=== PATIENT | female | born 1955 | race Caucasian/White ===

== ENCOUNTER 2020-02-08 00:06 | Day surgery (SDC) | payer OTHER, SELFPAY ==
[2020-02-05 11:19] VITALS: BMI 27.3
[2020-02-08 06:37] VITALS: BP 145/77; PULSE 83; RESP 18; TEMP 36.3; O2SAT 97
[2020-02-08] MEDS: LACTATED RINGERS 1,000 ML 150 ML IV CONT (06:44)
--- NOTE | 2020-02-08 07:14 | WPDANESEPPF ---
Anes - Initial Pre Proc Eval Procedure: Operation Date: 02/08/20 08:00 Proposed Procedures p Colonoscopy - Drake Durant DO Date/Time: 02/08/20 07:14 Surgeon: Drake Durant DO Pre Op Diagnosis: Constipation Patient Data Age: 64 Gender: F Height: 5 ft 2 in Weight: 68.2 kg Last Vital Signs Temp 36.3 C L 02/08/20 06:37 Pulse 83 02/08/20 06:37 Resp 18 02/08/20 06:37 BP 145/77 H 02/08/20 06:37 Pulse Ox 97 02/08/20 06:37 Allergies Allergy/AdvReac Type Severity Reaction Status Date / Time Sulfa (Sulfonamide Allergy Unknown Unknown Verified 02/05/20 11:27 Antibiotics) Home Medications Medication Instructions Recorded Confirmed Type alprazolam 0.25 mg tablet 0.25 mg PO TID PRN 10/06/19 02/05/20 History duloxetine 30 mg capsule,delayed 30 mg PO DAILY 10/06/19 02/05/20 History release dexlansoprazole [Dexilant] 60 mg PO DAILY 02/05/20 02/05/20 History metformin 500 mg PO DAILY 02/05/20 02/05/20 History Patient hx anesthesia problems: none Family hx anesthesia problems: none PMFSH Past Medical History Medical History Sims's esophagus with dysplasia FH: dementia Gastroesophageal reflux disease Major depressive disorder in partial remission Mixed hyperlipidemia Family History Family History Father Family history of Alzheimer's disease Family history of dementia Family history of coronary artery disease Family history of malignant neoplasm of kidney Mother Family history of dementia Grandparent Family history of malignant neoplasm of gastrointestinal tract Other Cerebrovascular accident Family history of cardiovascular disease Social History Social History Smoking status: Never smoker Alcohol intake: current Anes - Eval Final PreProcedure Day of Procedure 02/08/20 07:14 Patient weight: overweight Heart: regular rate and rhythm Lungs: clear to auscultation Airway: Mallampati scale class II Neurological: alert and oriented Last oral intake: >/= 8 hours ASA classification: I Emergent: no Anesthetic plan: proceed Anesthesia type and monitoring: general GIVS and standard monitoring Informed Consent: The patient's anesthetic plan and its attendant risks and benefits were discussed with the patient/family/POA. Questions were solicited and answers provided to the satisfaction of the patient/family/POA.
--- NOTE | 2020-02-08 08:02 | PM.IMHP ---
H&P: HPI History of Present Illness Chief complaint: Constipation Narrative: Batsheva Belcher is a 64 year old female This being evaluated for change in bowel habits. She has notice increasing constipation and change in caliber of the stools. She denies any hematochezia, melena or acholic stools. She does have significant abdominal discomfort with the constipation. Previous colonoscopy was unremarkable. The patient is here for follow-up colonoscopy due to change in bowel habits. She has has intentional weight loss. She does have history of reflux disease and status post Hector fundoplication. She has a history of underlying Sims's esophagus status post ablation. Impression: Change in bowel habits with increasing constipation. This may be secondary to underlying irritable bowel syndrome with constipation and chronic idiopathic constipation. Underlying inflammatory or neoplastic disease should be excluded. GERD with history of Sims's esophagus with dysplasia. Status post Hector fundoplication and ablation. For past medical history. Recommendation: Colonoscopy. Fiber and probiotic. Will give a trial of Linzess pending colonoscopy report. General: very pleasant patient in no acute distress. HEENT: Head was normocephalic sclerae is clear mouth without masses neck was supple. Heart: Rate rhythm regular without S3 or S4. Lungs: CTA. Abdomen: Soft with no guarding or rigidity. Bowel sounds were active. Neurologic: Cranial nerves 2 through 12 intact. No focal defects. No clonus. Musculoskeletal system: Revealed no joint tenderness or swelling no muscle atrophy. Extremities: Reveal no significant edema. Skin: Warm and dry with normal turgor. Mental status: intact. Patient is alert and oriented. Review of Systems Review of Systems: All systems reviewed & are unremarkable except as noted in HPI and below [facility] Past Medical History Medical History Sims's esophagus with dysplasia FH: dementia Gastroesophageal reflux disease Major depressive disorder in partial remission Mixed hyperlipidemia Surgical History Surgical History (Updated 02/08/20 @ 08:04 by Drake Durant DO) History of Hector fundoplication Family History Family History Father Family history of Alzheimer's disease Family history of dementia Family history of coronary artery disease Family history of malignant neoplasm of kidney Mother Family history of dementia Grandparent Family history of malignant neoplasm of gastrointestinal tract Other Cerebrovascular accident Family history of cardiovascular disease Social History Social History Smoking status: Never smoker Alcohol intake: current Meds Home Medications and Allergies Home Medications Medication Instructions Recorded Confirmed Type alprazolam 0.25 mg tablet 0.25 mg PO TID PRN 10/06/19 02/05/20 History duloxetine 30 mg capsule,delayed 30 mg PO DAILY 10/06/19 02/05/20 History release dexlansoprazole [Dexilant] 60 mg PO DAILY 02/05/20 02/05/20 History metformin 500 mg PO DAILY 02/05/20 02/05/20 History Allergies Allergy/AdvReac Type Severity Reaction Status Date / Time Sulfa (Sulfonamide Allergy Unknown Unknown Verified 02/05/20 11:27 Antibiotics) Vital Signs Vital Signs - 24 hr 02/08/20 06:37 Temperature 36.3 C L Pulse Rate 83 Respiratory Rate 18 Blood Pressure 145/77 H Pulse Oximetry 97
[2020-02-08 08:38] VITALS: BP 86/55; PULSE 60; RESP 19; O2SAT 97
[2020-02-08 08:48] VITALS: BP 106/63; PULSE 63; RESP 19; O2SAT 100
[2020-02-08 08:58] VITALS: BP 95/61; PULSE 60; RESP 17; O2SAT 100
== END 2020-02-08 09:08 | disposition home or self-care (01) ==
PROVIDERS: PCP Family Medicine; Visit Provider Internal Medicine Gastroenterology
PROC: 0DJD8ZZ Inspection of Lower Intestinal Tract, Via Natural or Artificial Opening Endoscopic (ICD-10-PCS; CPT 45378; principal; 2020-02-08 08:00)
DX: K59.00 Constipation, unspecified (principal); K57.30 Diverticulosis of large intestine without perforation or abscess without bleeding; E78.2 Mixed hyperlipidemia; K21.9 Gastro-esophageal reflux disease without esophagitis; F32.9 Major depressive disorder, single episode, unspecified
CPT/HCPCS: 45378; J2704; J7120

== ENCOUNTER 2020-08-13 13:15 | Outpatient (RCR) | payer MEDICARE, SELFPAY ==
--- NOTE | 2020-07-31 15:49 | PTOPEVAL ---
PHYSICAL THERAPY EVALUATION AND PLAN OF CARE Thank you for referring Batsheva Belcher to [facility] The patient is scheduled to be seen for therapy? 1x/week for 4-8 weeks. Please review, sign, date and return this plan of care ALLEGRA. I agree with and certify that the following plan of care is medically necessary. Referring Physician Date Attending Provider: Jeovany Chapman MD Evaluation Diagnosis left impingement syndrome Onset 1 year Subjective Information reports pain in left shoulder Query Text:As Reported By Patient/ with reaching behind back. 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 She received an injection to the shoulder. The injection has improved her ability to sleep. Self Report Pain Assessment Left Shoulder(s) Reported Pain Level 2 Pain Description Aching,Dull Pain Frequency Chronic,Intermittent Lowest Pain Intensity 0 Greatest Pain Intensity 6 Interventions Used Interventions Used By Clinicians Exercise,Manual Therapy Techniques Other Alleviating Interventions change position Upper Extremity Range of Motion Scapular/ Shoulder Range of Motion Right Shoulder Flexion - Active 160 Shoulder Abduction - Active 160 Shoulder Medial Rotation - Active T8 Query Text:Reach Behind the Back Shoulder Lateral Rotation - Active 75 Query Text:Reach Behind the Head Left Shoulder Flexion - Active 136 Shoulder Abduction - Active 152 Shoulder Medial Rotation - Active L1 Query Text:Reach Behind the Back Shoulder Lateral Rotation - Active 72 Query Text:Reach Behind the Head Upper Extremity Muscle Strength Testing Scapular/Shoulder Right Shoulder Flexion Strength 5 Normal Shoulder Abduction Strength 5 Normal Shoulder Medial Rotation Strength 5 Normal Shoulder Lateral Rotation Strength 5 Normal Left Shoulder Flexion Strength 5 Normal Shoulder Abduction Strength 5 Normal Shoulder Medial Rotation Strength 4+ Good + Shoulder Lateral Rotation Strength 5 Normal Muscle Length Testing Muscle Length Testing Upper Trapezius Muscle Length (L) Moderate Tightness Supraspinatus Muscle Length (L) Moderate Tightness Pectoralis Major Muscle Length (L) Moderate Tightness Palpation Assessment Palpation Palpation tight and tender noted to left infraspinatus, supraspinatus, upper trapezius, pectoralis major, and subscapularis Special Tests-Upper Extremity Shoulder Special Tests Empty Can (supr
--- NOTE | 2020-08-19 11:56 | PCPTNOTE ---
Patient called & cancelled scheduled appointment this date due to being ill.
--- NOTE | 2020-08-27 12:31 | PCPTNOTE ---
Patient called & cancelled scheduled appointment this date due to meeting at work.
--- NOTE | 2020-09-18 08:28 | PCPTNOTE ---
PHYSICAL THERAPY DISCHARGE NOTE Attending Provider: Jeovany Chapman MD Patient:Batsheva Belcher Date of :1955 Patient has not returned for any further treatments since 08/13/2020, therefore she will be discharged at this time. Patient?s initial visit was on 07/31/2020 and had a total of 3 visits. Thank you for referring this patient to [facility]. Please review, sign, date and return this discharge summary ALLEGRA. I have been updated about the patient's current status and I agree with discharge from the above service at this time. Referring Physician Date
== END 2020-09-18 11:28 | disposition home or self-care (01) ==
LOC: ANHPT 13:15
PROVIDERS: PCP Family Medicine; Visit Provider Orthopaedic Surgery
DX: M75.42 Impingement syndrome of left shoulder (principal)
CPT/HCPCS: 97110; 97140; 97161

== ENCOUNTER 2020-08-22 09:52 | Outpatient (CLI) | payer MEDICARE, SELFPAY ==
--- NOTE | ~2020-08-22 | MM_ITS ---
EXAMINATION: MM screening [facility] BI w jose luis HISTORY: Screening mammogram TECHNIQUE: Craniocaudal and mediolateral oblique 3-D tomosynthesis images were obtained and synthetic 2-D images were generated. CAD analysis was submitted and interpreted. COMPARISON: 06/09/2019, 09/08/2018, 05/23/2018, 05/22/2013 BREAST PARENCHYMAL COMPOSITION: The breasts are heterogeneously dense, which may obscure small masses . FINDINGS: Scattered benign-appearing calcifications are present. There is no evidence of suspicious m ass, calcification, or architectural distortion to suggest malignancy in either breast. There has bee n no suspicious interval change. IMPRESSION: 1. No mammographic evidence of malignancy. 2. Recommend routine screening mammography in one year. BI-RADS Category 2: Benign finding(s). Reviewed, dictated and finalized at location A. F MATE
== END 2020-08-22 09:53 | disposition home or self-care (01) ==
LOC: ANHIMG 09:58
PROVIDERS: PCP Family Medicine; Visit Provider Family Medicine
DX: Z12.31 Encounter for screening mammogram for malignant neoplasm of breast (principal)
CPT/HCPCS: 77063; 77067

== ENCOUNTER → 2022-06-04 09:42 | Outpatient (CLI) | payer MEDICARE, BC, SELFPAY ==
--- NOTE | ~2022-06-04 | DEXA_ITS ---
Bone Density Report Name: ENRIQUE HAYTT Age: 67 Sex: Female Ethnicity: White Date of : 1955 Indication: postmenopausal; screening for osteoporosis; hysterectomy; Referring Provider: SAULO SOLORIO Study: Bone densitometry was performed. Exam Date: June 04, 2022 Accession number: [id number] Bone Density: Region BMD T-score Z-score Classification AP Spine (L1-L4) 1.086 0.4 2.3 Normal Femoral Neck (Left) 0.812 -0.3 1.3 Normal Total Hip (Left) 0.972 0.2 1.6 Normal Femoral Neck (Right) 0.828 -0.2 1.4 Normal Total Hip (Right) 0.975 0.3 1.6 Normal Total Hip Mean 0.974 0.3 1.6 Normal World Health Organization criteria for BMD impression classify patients as: Normal (T-score at or above -1.0), Osteopenia (T-score between -1.0 and -2.5), or Osteoporosis (T-score at or below -2.5). 10-year Fracture Risk: FRAX not reported because: All T-scores for Spine Total, Hip Total, Femoral Neck at or above -1.0 Previous Exams: Region Exam Age BMD T-score BMD Change BMD Change Date g/cm2 vs Baseline vs Previous AP Spine(L1-L4) 06/04/2022 67 1.086 0.4 0.051* 0.051* 03/20/2016 60 1.036 -0.1 Total Hip(Left) 06/04/2022 67 0.972 0.2 0.015 0.015 03/20/2016 60 0.957 0.1 Total Hip(Right) 06/04/2022 67 0.975 0.3 0.036* 0.036* 03/20/2016 60 0.938 0.0 *Denotes significance at 95% confidence level, LSC for AP Spine = 0.022 g/cm2, LSC for Total Hip = 0.027 g/cm2 Clinical Information Provided by Patient: Has the following medical conditions: Hysterectomy Patient maximum height was 63 Menopause Age: 47 No regular weight bearing exercise Drinks caffeinated beverages Onset of menses at age 14 Number of children 3 Impression: The patient has normal bone mass. No significant bone loss was observed. Discussion: BONE DENSITY IS ABOVE THE MINIMUM DESIRABLE LEVEL AT ALL SKELETAL SITES TESTED. This patient?s bone mineral density is above the minimum desirable level (T-score -1.0 or better) at all sites measured. The patient should follow a healthful lifestyle (good nutrition with adequate calcium and vitamin D, and appropriate weight-bearing exercise). Follow-Up: Consider repeating this study in 5 years or sooner if there is some new clinical indication. Reported by: [facility] on 06/04/2022 10:49:00 AM. Reviewed, dictated and finalized at l
--- NOTE | ~2022-06-04 | MM_ITS ---
EXAMINATION: MM screening [facility] BI w jose luis HISTORY: Screening mammogram TECHNIQUE: Craniocaudal and mediolateral oblique 3-D tomosynthesis images were obtained and synthetic 2-D images were generated. CAD analysis was submitted and interpreted. COMPARISON: 08/22/2020, 06/09/2019, 09/08/2018, 05/23/2018 BREAST PARENCHYMAL COMPOSITION: The breasts are heterogeneously dense, which may obscure small masses . FINDINGS: Scattered benign-appearing calcifications are present. There is no suspicious mass, calcifi cation, or architectural distortion to suggest malignancy in either breast. There has been no suspici ous interval change. IMPRESSION: 1. No mammographic evidence of malignancy. 2. Recommend routine screening mammography in one year. BI-RADS Category 2: Benign finding(s). Reviewed, dictated and finalized at location A.
== END ==
PROVIDERS: PCP Family Medicine; Visit Provider Family Medicine
DX: Z12.31 Encounter for screening mammogram for malignant neoplasm of breast (principal); Z78.0 Asymptomatic menopausal state
CPT/HCPCS: 77063; 77067; 77080

== ENCOUNTER 2022-06-27 09:40 | Emergency (ER) | payer MEDICARE, SELFPAY ==
[2022-06-27] VITALS (13 sets, daily range): BP systolic 126–153; BP diastolic 60–80; PULSE 71–85; RESP 11–18; TEMP 36.6; O2SAT 94–100
--- NOTE | ~2022-06-27 | XR_ITS ---
EXAMINATION: XR chest 1V portable 06/27/2022 10:26 INDICATION: Cough and shortness of breath PROCEDURE: AP portable chest COMPARISON: No prior studies for comparison. FINDINGS: The lungs are clear. The cardiomediastinal silhouette is within normal limits. There are no pleural effusions. There is no pneumothorax suspected. IMPRESSION: 1: NO ACUTE CARDIOPULMONARY DISEASE. Reviewed, dictated and finalized at location A.
--- NOTE | 2022-06-27 09:55 | ECG_ITS ---
Measurements Intervals [place] Rate: 77 P: 58 VT: 154 QRS: -10 QRSD: 80 T: 42 QT: 370 QTc: 420 Interpretive Statements SINUS RHYTHM NORMAL ECG NO PREVIOUS ECG AVAILABLE FOR COMPARISON Electronically Signed On 06-27-2022 11:15:06 CDT by Jonathan Pozo D.O.
[2022-06-27] MEDS: IPRATROPIUM BR 0.02% INH SOLN 0.5 MG/2.5 ML VIAL 1.5 MG INHALATION (10:10)
[2022-06-27] MEDS: ALBUTEROL SULFATE NEB 2.5 MG/3 ML INH 15 MG INHALATION (10:10)
[2022-06-27 10:24] LABS: Basophils Percent Auto 0.8 % (0.2-1.2); Eosinophils Absolute Auto 0.4 K/mm3 (0-0.3); Eosinophils Percent Auto 8.3 % (0-4.4); Hematocrit 40.3 % (37.0-47.0); Immature Granulocyte Absolute 0.01 K/mm3 (0.00-0.031); Immature Granulocyte Percent A 0.2 % (0-0.5); Lymphocytes Absolute Auto 0.87 K/mm3 (0.9-3.2); Lymphocytes Percent Auto 16.4 % (18.3-44.2); Mean Corpuscular HGB Conc 34.7 g/dl (32-36); Mean Corpuscular Hemoglobin 34.7 pg (26-34); Mean Corpuscular Volume 99.8 fl (80-100); Mean Platelet Volume 8.7 fl (7.4-10.4); Monocytes Absolute Auto 0.5 K/mm3 (0.1-0.6); Monocytes Percent Auto 9.6 % (2.6-8.5); Neutrophils Absolute Auto 3.4 K/mm3 (1.3-6.7); Neutrophils Percent Auto 64.7 % (45.5-73.1); Platelet Count Result 333 k/mm3 (150-375); Red Blood Count 4.04 M/mm3 (4.2-5.4); Red Cell Distribution Width 11.6 % (11.5-14.5); White Blood Count 5.3 K/mm3 (4.5-10.0)
[2022-06-27 10:40] LABS: Anion Gap 12 mmol/L (8-16); Blood Urea Nitrogen 14 mg/dL (7-17); Calcium 8.6 mg/dL (8.4-10.2); Carbon Dioxide 24 mmol/L (22-30); Chloride 104 mmol/L (98-107); Estimated CRCL calculation 56 ml/min; Estimated Glomerular Filt Rate > 60; Glucose 113 mg/dL (65-110); Potassium 3.8 mmol/L (3.4-5.0); Sodium 140 mmol/L (137-145)
[2022-06-27 10:49] LABS: SARS-CoV-2 RNA PCR Negative
--- NOTE | 2022-06-27 11:40 | PC.NURSE ---
pt states that she still feels tightness in her chest at this time
[2022-06-27] MEDS: IPRATROPIUM BR 0.02% INH SOLN 0.5 MG/2.5 ML VIAL INHALATION (12:00)
[2022-06-27] MEDS: ALBUTEROL SULFATE NEB 2.5 MG/3 ML INH 5 MG INHALATION (12:00)
--- NOTE | 2022-06-27 12:21 | ED.GENADULT ---
HPI - General Adult General Chief complaint: Upper Respiratory Infection Stated complaint: URI - cough x 3 weeks Time Seen by Provider: 06/27/22 09:43 History of Present Illness HPI narrative: Patient is a 67-year-old female who presents ER with cough and shortness of breath. Patient reports she had a viral illness in late May that she thought she got over but over the last 3 days symptoms have increased. She has frequent coughing. She has been hearing wheezing at night. She feels tightness in her chest. No exertional chest pain. No history of [place]. No lung disease. She took a COVID antigen test that was negative. Related Data Home Medications Medication Instructions Recorded Confirmed linaclotide 72 mcg capsule 72 mcg PO DAILY 08/02/20 10/01/21 (Linzess) Allergies Allergy/AdvReac Type Severity Reaction Status Date / Time Sulfa (Sulfonamide Allergy Unknown Unknown Verified 06/27/22 09:41 Antibiotics) Review of Systems Review of Systems: All systems reviewed & are unremarkable except as noted in HPI and below Constitutional: Constitutional: Denies chills and Denies fever(s) Cardiovascular: Cardiovascular: Denies chest pain, Denies rapid heart rate and Denies radiating jaw, neck or arm pain Respiratory: Respiratory: Reports cough, Reports dyspnea and Reports wheezing Gastrointestinal: Gastrointestinal: Denies abdominal pain, Denies nausea and Denies vomiting PMFSH Past Medical History Medical History Sims's esophagus with dysplasia BMI 26.0-26.9,adult FH: dementia Gastroesophageal reflux disease Left lateral epicondylitis Major depressive disorder in partial remission Mixed hyperlipidemia Surgical History Surgical History H/O: hysterectomy History of cholecystectomy History of Hector fundoplication Family History Family History Father Family history of Alzheimer's disease Family history of dementia Family history of coronary artery disease Family history of malignant neoplasm of kidney Mother Family history of dementia Grandparent Family history of malignant neoplasm of gastrointestinal tract Other Cerebrovascular accident Family history of cardiovascular disease Social History Social History Smoking status: Never smoker Alcohol intake: current Drinks per week: 4 Substance use: never Substance use type: does not use Gender identity (if verbalized by the patient): Female Exam Narrative: GENERAL: Well-appearing, well-nourished, and in no acute distress. HEAD: Normocephalic, atraumatic. ENT: Mucous membranes moist. Normal-appearing posterior oropharynx. Uvula midline nonedematous. No tonsillar hypertrophy. NECK: Supple. CHEST: Scattered rhonchi and wheezing. No respiratory distress. HEART: Regular rate and rhythm. Normal peripheral pulses. EXTREMITIES: Normal range of motion. No edema. SKIN: Warm, dry, no rash. NEURO: Alert and oriented x3. PSYCH: Normal mood and affect. Course Vital Signs Vital signs: Vital Signs Temperature 97.9 F 06/27/22 09:43 Pulse Rate 85 06/27/22 09:43 Respiratory Rate 16 06/27/22 09:43 Blood Pressure 126/78 06/27/22 09:43 Pulse Oximetry 99 06/27/22 09:43 Oxygen Delivery Room Air 06/27/22 09:43 Temperature 97.9 F 06/27/22 09:43 Pulse Rate 71 06/27/22 12:06 Respiratory Rate 14 06/27/22 12:06 Blood Pressure 134/60 06/27/22 11:16 Pulse Oximetry 94 06/27/22 11:16 Oxygen Delivery Room Air 06/27/22 10:03 Medical Decision Making [facility] Narrative Medical decision making narrative: Patient markedly improved after nebulizer treatment. Will give first dose steroids here and discharged home. Vital Signs Vital Signs: Vital Signs Temperature 97.9 F
[2022-06-27] MEDS: predniSONE 40 MG, predniSONE 10 MG 50 MG PO (12:33)
== END 2022-06-27 12:45 | disposition home or self-care (01) ==
PROVIDERS: Emergency Provider Emergency Medicine; PCP Family Medicine
DX: J40 Bronchitis, not specified as acute or chronic (principal); Z90.710 Acquired absence of both cervix and uterus; K22.70 Barrett's esophagus without dysplasia; K21.9 Gastro-esophageal reflux disease without esophagitis; E78.2 Mixed hyperlipidemia; Z20.822 Contact with and (suspected) exposure to COVID-19
CPT/HCPCS: 36415; 71045; 80048; 85025; 93005; 94640; 99284; C9803; J7512; U0003; U0005

== ENCOUNTER → 2023-11-16 15:55 | Outpatient (CLI) | payer MEDICARE, SELFPAY ==
--- NOTE | ~2023-11-16 | MM_ITS ---
EXAMINATION: MM screening [facility] BI w jose luis HISTORY: Screening mammogram TECHNIQUE: Craniocaudal and mediolateral oblique 3-D tomosynthesis images were obtained and synthetic 2-D images were generated. CAD analysis was submitted and interpreted. COMPARISON: 06/04/2022, 08/22/2020, 06/09/2019 BREAST PARENCHYMAL COMPOSITION: The breasts are heterogeneously dense, which may obscure small masses . FINDINGS: Scattered benign-appearing calcifications are present. No suspicious mass, calcification, o r architectural distortion are identified in either breast to suggest malignancy. There has been no s uspicious interval change. IMPRESSION: 1. No mammographic evidence of malignancy. 2. Recommend routine screening mammography in one year. BI-RADS Category 2: Benign finding(s). Reviewed, dictated and finalized at location A. RESSED [employer] TE[employer]
== END ==
PROVIDERS: PCP Surgery; Visit Provider Family Medicine
DX: Z12.31 Encounter for screening mammogram for malignant neoplasm of breast (principal)
CPT/HCPCS: 77063; 77067

== ENCOUNTER 2024-05-04 13:43 | Outpatient (CLI) | payer MEDICARE, SELFPAY ==
[2024-05-04 14:31] LABS: Influenza A QL RT-PCR Negative (Negative); Influenza B QL RT-PCR Negative (Negative); RSV RNA, RT-PCR Negative (Negative); SARS-CoV-2 RNA PCR Negative (Negative)
== END 2024-05-04 13:44 | disposition home or self-care (01) ==
LOC: ANHLAB 13:45
PROVIDERS: PCP Family Medicine; Visit Provider Family Medicine
DX: J06.9 Acute upper respiratory infection, unspecified (principal); Z20.822 Contact with and (suspected) exposure to COVID-19
CPT/HCPCS: 87637

== ENCOUNTER 2024-12-19 08:55 | Emergency (ER) | payer MEDICARE, SELFPAY ==
--- NOTE | ~2024-12-19 | CT_ITS ---
CT scan of the Neck Technique: 2.5 mm axial scans were obtained through the neck after intravenous administration of 75 c c Omnipaque 350. Coronal and sagittal reconstructions of the neck were obtained. Dose reduction techn ique was used on this scan by utilizing automated exposure control and iterative reconstruction techn ique. The dose-length product (DLP) was 475.91 mGy-cm. Clinical History: Right-sided neck pain Findings: There is no evidence of any significant cervical lymphadenopathy. Several small, nonenlarged jugulo- digastric and posterior cervical lymph nodes are noted bilaterally. Parapharyngeal spaces appear norm al bilaterally. The parotid and submandibular glands appear normal. The pharyngeal mucosal spaces appear normal. No soft tissue masses are seen in the neck. The thyroid gland appears normal. Images of the lung apices reveal no abnormalities. Impression: No significant abnormalities noted. Reviewed, dictated and finalized at [facility]. Impression: No significant abnormalities noted.
[2024-12-19 08:55] VITALS: BP 185/72; PULSE 62; RESP 16; TEMP 36.3; O2SAT 97
--- NOTE | 2024-12-19 09:23 | ED.GENADULT ---
HPI - General Adult General Chief complaint: Unspecified Stated complaint: R sided neck swelling since late nov Time Seen by Provider: 12/19/24 09:08 Source: patient Mode of arrival: ambulatory Limitations: no limitations History of Present Illness HPI narrative: This is a 69-year-old female who presents to the ED for chief complaint of right-sided neck swelling and pain x1 month. Patient states that she had COVID just over 1 month ago and she did notice the swelling start around that time. Patient states that she has had radiating pains from the lower jaw/teeth that radiates throughout the right side of the face and towards the right ear. Patient also states that it feels like her sinuses are congested and she feels congested throughout her whole head. Pain comes and goes in severity with no specific pattern. Patient had no relief with leftover Norcos. She has also had course of Z-Ángel and steroid pack previously. States that the last time she had intense pain like this was several years ago when she had to have root canal. Denies fevers, chills, difficulty swelling, trismus, drooling, muffled voice. Related Data Home Medications ?Medication ?Instructions ?Recorded ?Confirmed ?Last Taken ?Type meloxicam 15 mg tablet See Rx Instructions .Route 12/06/23 11/23/24 Unknown History .COMPLEX PRN Allergies Allergy/AdvReac Type Severity Reaction Status Date / Time Sulfa (Sulfonamide Allergy Unknown Unknown Verified 12/19/24 08:57 Antibiotics) Review of Systems Review of Systems: All systems as dictated in [facility] Past Medical History Medical History COVID (~11/19/24) Left lateral epicondylitis BMI 26.0-26.9,adult Sims's esophagus with dysplasia FH: dementia Gastroesophageal reflux disease Major depressive disorder in partial remission Mixed hyperlipidemia Surgical History Surgical History H/O: hysterectomy History of cholecystectomy History of Hector fundoplication Family History Family History Father Family history of Alzheimer's disease Family history of dementia Family history of coronary artery disease Family history of malignant neoplasm of kidney Mother Family history of dementia Grandparent Family history of malignant neoplasm of gastrointestinal tract Other Cerebrovascular accident Family history of cardiovascular disease Social History Social History Social History: Caffeine- coffee Smoking status: Never smoker Alcohol intake: current Drinks per week: 3 Substance use: never Substance use type: does not use Lack of Transportation: No Lack of Food: Never True Current Housing: I Have Housing Concerned About Future Housing: No Difficulty Paying Gas/Electric Bills: No Difficulty Paying for Meds: No Currently Unemployed: No Education: Master's Degree or Higher Difficulty w/ Childcare or Family Care: No Living arrangements: with family Occupation/Education: retired Gender identity (if verbalized by the patient): Female Exam Narrative: GENERAL: Well-appearing, well-nourished, and in no acute distress. HEAD: Normocephalic, atraumatic. EYES: PERRLA and EOMI. ENT: Minimal to no swelling noted throughout the bilateral neck. There is also minimal tenderness to the right submandibular region which is the area of concern. There is evidence of dental caries to the right lower molars. No discrete focal abscess. No fluctuance or induration. Nares clear, no rhinorrhea or epistaxis. Mucous membranes moist. Oropharynx without tonsillar hypertrophy exudate or other lesions. NECK: Supple. No adenopathy or masses. CHEST: No respiratory distress. Clear to auscultation. No wheezes rales or rhonchi HEART: Regular rate and rhythm. No murmur heard. Normal peripheral pulses. ABDOMEN: Soft, nontender, nondistended, normal active bowel sounds. MSK: Normal range of motion. No edema. SKIN: Warm, dry, no rash. NEURO: Alert and oriented x4. No focal deficits. PSYCH: Normal mood and affect. Course Vital Signs Vital signs: Vital Signs Temperature 97.3 F L 12/19/24 08:55 Pulse Rate 62 12/19/24 08:55 Respiratory Rate 16 12/19/24 08:55 Blood Pressure 185/72 H 12/19/24 08:55 Pulse Oximetry 97 12/19/24 08:55 Oxygen Delivery Room Air 12/19/24 08:55 Temperature 97.3 F L 12/19/24 08:55 Pulse Rate 61 12/19/24 12:00 Respiratory Rate 16 12/19/24 12:00 Blood Pressure 160/67 H 12/19/24 12:00 Pulse Oximetry 96 12/19/24 12:00 Oxygen Delivery Room Air 12/19/24 08:55 Medical Decision Making [facility] Narrative Medical decision making narrative: This is a 69-year-old female who presents to the ED for chief complaint of right-sided jaw pain and swelling over the past month. Vitals show elevated blood pressure but otherwise are normal. Exam is benign overall. No significant soft tissue swelling noted to exam. No induration or fluctuance to indicate abscess on ENT exam. There are dental caries present. Lab work shows normal white count on CBC. CMP unremarkable overall. CRP is negative. CT soft tissue neck with contrast: Impression: No significant abnormalities noted. Etiology unclear of the right submandibular pain, however I feel it is most likely odontogenic in nature. Patient was given cefazolin, dexamethasone, Toradol, Dilaudid here in the ED. There is sinusitis detected on the CT scan which is consistent with her sinus pressure symptoms. Encouraged her to follow-up with ENT on this as well as dentist for possible dental infection. Rx for Augmentin given. Rx for short course of [place] given for acute pain control. Patient will be discharged in stable condition. Supportive measures discussed and return precautions given. Patient is understanding and agreeable with plan for discharge with PCP follow-up. Vital Signs Vital Signs: Vital Signs Temperature 97.3 F L 12/19/24 08:55 Pulse Rate 62 12/19/24 08:55 Respiratory Rate 16 12/19/24 08:55 Blood Pressure 185/72 H 12/19/24 08:55 Pulse Oximetry 97 12/19/24 08:55 Oxygen Delivery Room Air 12/19/24 08:55 Temperature 97.3 F L 12/19/24 08:55 Pulse Rate 61 12/19/24 12:00 Respiratory Rate 16 12/19/24 12:00 Blood Pressure 160/67 H 12/19/24 12:00 Pulse Oximetry 96 12/19/24 12:00 Oxygen Delivery Room Air 12/19/24 08:55 Lab Data 12/19/24 10:16 12/19/24 10:16 Labs: Lab Results 12/19/24 Range/Units 10:16 WBC 5.6 (4.5-10.0) K/mm3 RBC 4.30 (4.2-5.4) M/mm3 Hgb 14.4 (12.0-15.0) g/dL Hct 42.6 (37.0-47.0) % MCV 99.1 (80-100) fl MCH 33.5 (26-34) pg MCHC 33.8 (32-36) g/dl RDW 12.5 (11.5-14.5) % Plt Count 279 (150-375) k/mm3 MPV 9.3 (7.4-10.4) fl Immature Gran % (Auto) 0.4 (0-0.5) % Neut % (Auto) 57.4 (45.5-73.1) % Lymph % (Auto) 27.3 (18.3-44.2) % [place] % (Auto) 8.7 H (2.6-8.5) % Eos % (Auto) 5.3 H (0-4.4) % Baso % (Auto) 0.9 (0.2-1.2) % Lymph # (Auto) 1.54 (0.9-3.2) K/mm3 [place] # (Auto) 0.5 (0.1-0.6) K/mm3 Eos # (Auto) 0.3 (0-0.3) K/mm3 Baso # (Auto) 0.1 (0.0-0.1) K/mm3 Abs Immat Gran (auto) 0.02 (0.00-0.031) K/mm3 Absolute Neuts (auto) 3.2 (1.3-6.7) K/mm3 Absolute Nucleated RBC 0.000 (0.0-0.012) K/mm3 Nucleated RBC % 0.0 (0.0-0.2) % Sodium 139 (137-145) mmol/L Potassium 4.8 (3.4-5.0) mmol/L Chloride 109 H (98-107) mmol/L Carbon Dioxide 22 (22-30) mmol/L Anion Gap 8 (4-12) mmol/L BUN 16 (7-17) mg/dL Creatinine 0.74 (0.7-1.0) mg/dL Estim Creat Clear Calc 58 ml/min Estimated GFR > 60 (59 - ) Glucose 114 H (65-110) mg/dL Calcium 9.1 (8.4-10.2) mg/dL Total Bilirubin 0.8 (0.2-1.3) mg/dL AST 45 H (14-36) U/L ALT 55 H (6-35) U/L Alkaline Phosphatase 104 (38-126) U/L C-Reactive Protein < 0.5 (<1.0) mg/dL Total Protein 7.0 (6.3-8.2) g/dL Albumin 4.2 (3.5-5.1) g/dL Discharge Plan Discharge Clinical Impression: Sinusitis, Right facial pain Patient Disposition: Home, Self-Care Condition: Stable Instructions: Antibiotic Form Additional Instructions: Exam and imaging today are reassuring overall. There is evidence of sinus infection. Suspect the lower jaw pain could be due to a dental source. Please take antibiotics as prescribed. Use Tylenol 500 mg every 6 hours as needed for pain control at baseline. Take [place] every 8 hours as needed for breakthrough pain. Not exceed 4000 mg of Tylenol a day. If you have any new or worsening symptoms please return to the ER for further evaluation. Patient Language: Northern Irish Prescriptions: New hydrocodone-acetaminophen 5-325 mg tablet 1 tablet PO Q8H PRN (Reason: pain) Qty: 14 0RF amoxicillin-pot clavulanate 875-125 mg tablet 1 tablet PO Q12H Qty: 14 0RF No Action meloxicam 15 mg tablet See Rx Instructions .ROUTE .COMPLEX PRN Dose Instruction: TAKE 1 TABLET BY MOUTH DAILY Rx Instructions: TAKE 1 TABLET BY MOUTH DAILY PRN; betamethasone valerate 0.1 % cream 1 applic topical BID PRN (Reason: itching) Qty: 15 2RF cholecalciferol (vitamin D3) 25 mcg (1,000 unit) capsule 25 mcg PO DAILY Qty: 90 0RF mecobalamin (vitamin B12) 1,000 mcg tablet,chewable 1,000 mcg PO DAILY Qty: 90 0RF Dexilant 60 mg capsule,biphase delayed releas 60 mg PO DAILY Qty: 90 1RF duloxetine 30 mg capsule,delayed release(DR/EC) 30 mg PO DAILY Qty: 30 4RF alprazolam [Xanax] 0.25 mg tablet 0.25 mg PO TID PRN (Reason: anxiety) Qty: 90 0RF Follow-up/Referrals: María Queen MD [Primary Care Provider] - Time of Disposition: 12:01
--- OUTSIDE RECORDS SUMMARY | 2024-12-19 09:23 | XMS_ITS | Clinical Summary ---
Author Organization [facility] Address [address] [address] Phone Care Team Providers Care Supervisor Coke Handling Name Role Phone María Queen MD Primary Care Provider [phone] Medications Linzess 72 MCG Capsule TAKE 1 CAPSULE EVERY MORNING 90 Cap 3 09/18/2020 Active Social History Tobacco Use Types Packs/Day Years Used Date Smoking Tobacco: Never Assessed Comments Unknown Sex and Gender Information Value Date Recorded Sex Assigned at Not on file Legal Sex Female 10:18 PM CDT Gender Identity Not on file Sexual Orientation Not on file Plan of Treatment Health Maintenance Due Date Last Done Comments DEXA Bone Density 1955 Hepatitis C Virus (HCV) Screening 1955 TdaP Immunization 1955 Cologuard 2005 Immunochemical Fecal Occult Blood 2005 Mammogram 2005 Pneumococcal Immunization (5 0+ years) (1 of 1 - PCV) 2005 Zoster Immunization (1 of 2) 2005 Influenza Immunization (#1) 2024 SARS-COV-2 Immunization ( - 2023- season) 2024 Colonoscopy 02/07/2027 02/08/2020 Colorectal Cancer Screening 02/07/2027 Respiratory Syncytial Virus (RSV) Immunization (Adult) (1 - 1-dose 75+ series) 2030 02/08/2020 Hepatitis B Immunization Aged Out No longer eligible based on patient's age to complete this topic Meningococcal Immunization (ACWY) Aged Out No longer eligible based on patient's age to complete this topic Rotavirus Immunization Aged Out No lo nger eligible based on patient's age to complete this topic Procedures Procedure Name Priority Date/Time Associated Diagnosis Comments COLONOSCOPY Routine 02/08/2020 from Last 3 Months or Most Recently Relevant to Health Maintenance Results * COLONOSCOPY (02/08/2020) Drake Durant DO PROCEDURE/MINOR SURGICAL ORDERA BLES Final Result from Last 3 Months or Most Recently Relevant to Health Maintenance Care Teams Supervisor Coke Handling Relationship Specialty Start Date End Date María Queen MD [address] [place] [address] PCP - General Family Medicine 02/19/20
--- OUTSIDE RECORDS SUMMARY | 2024-12-19 09:23 | XMS_ITS | Clinical Summary ---
Author Organization [facility] Address [address] [place] [address] Phone Care Team Providers Care Retail Warehouse Associate Name Role Phone Beau Zavala MD Primary Care Provider [phone] Allergies Active Allergy Reactions Criticality Noted Date Comments Sulfa (Sulfonamide Antibiotics) Unknown 11/04 Had since child Medications sertraline (ZOLOFT) 100 mg Oral tablet Take 100 mg by mouth daily. Active eszopiclone (LUNESTA) 3 mg Oral Tab Take 3 mg by mouth nightly as needed. Active omeprazole magnesium (PRILOSEC OTC) 20 mg Oral TbEC Take 20 mg by mouth 2 times daily. Active OTHER Hormone replacement that is under the skin on hip Active amoxicillin-cla vulanate (AUGMENTIN) 875-125 mg Oral tabletIndicatio ns:Acute sinusitis Take 1 Tab by mouth every 12 hours. 20 Tab 0 3 Active ergocalciferol (VITAMIN D2) 50,000 unit Oral capsule Take 1 Cap by mouth every 7 days. 8 Cap 0 3 Active Active Problems Problem Noted Date Diagnosed Date Nasal polyp 02/22/2013 Sensorineural hearing loss 02/22/2013 GERD (gastroesophageal reflux disease) 3 Dysphonia 02/22/2013 Vitamin D deficiency 11/23/2012 Hyperlipidemia 11/23/2012 Chronic insomnia 11/16/2012 Depression Overview (11/15/2012): Sees Dr. Iverson-psychiatrist in [place] Hx of insomnia Immunizations Immunization Administration Dates Next Due (ADACEL/BOOSTRIX)(10 YR UP) TDAP VACCINE, 0.5ML, IM 11/15/2012 Family History Medical History Relation Name Comments Healthy Brother Healthy Daughter Cancer Father Kidney Cancer Cancer Maternal Aunt Melanoma Respiratory Disease Maternal Grandfather COPD Colon Cancer Maternal Grandmother Rectal Cancer Depression Mother and dementia Other Mother Alzheimer's/Dem entia Unknown Paternal Grandfather Unknown Paternal Grandmother Healthy Son 1 Healthy Son 2 Relation Name Status Comments Brother Alive Daughter Alive Father Maternal Aunt Maternal Grandfather Maternal Grandmother Mother Alive Paternal Grandfather Paternal Grandmother Son 1 Alive Son 2 Alive Social History Tobacco Use Types Packs/Day Years Used Date Smoking Tobacco: Never Smokeless Tobacco: Never Alcohol Use Standard Drinks/Week Comments Yes 0 (1 standard drink = 0.6 oz pur e alcohol) Comments No Sex and Gender Information Value Date Recorded Sex Assigned at Not on file Legal Sex Female 8:34 AM NICU RN Gender Identity Not on file Sexual Orientation Not on file Occupation Industry Job Start Date Job End Date Not on file Not on file Not on file Not on file Last Filed Vital Signs Vital Sign Reading Time Taken Comments Blood Pressure 112/64 11/15/2012 11:17 AM NICU RN Pulse 68 11/15/2012 11:17 AM NICU RN Temperature 37 C (98.6 F) 11/15/2012 11:17 AM NICU RN Respiratory Rate 18 11/15/2012 11:1 7 AM NICU RN Oxygen Saturation - - Inhaled Oxygen Concentration - - Weight 80.2 kg (176 lb 12.8 oz) 013 11:17 AM NICU RN Height 160 cm (5' 3 ) 11/15/2012 11:17 AM NICU RN Body Mass Index 31.32 11/15/2012 11:17 AM NICU RN Plan of Treatment Health Maintenance Due Date Last Done Comments FIT-DNA Q 3 years 2000 FIT/FOBT Q 1 year 2000 Flex Sig/CT Colonography Q 5 years 2000 PNEUMOCOCCAL VACCINE 50+ YEA RS (1 of 1 - PCV) 2005 ZOSTER VACCINE (1 of 2) 2005 COLORECTAL SCREENING 11/15/2010 11/15/2005 (Previously completed), 11/15/2005, 11/15/2005 Colorectal Cancer Screening 11/15/2010 BREAST CANCER SCREENING 11/15/2012 11/15/19 12 (Previously completed) OSTEOPOROSIS SCREENING 2020 DTAP/TDAP/TD VACCINES (2 - T d or Tdap) 11/15/2022 11/15/2012 INFLUENZA VACCINE (#1) 2024 RSV VACCINE (60+ or ) (1 - 1-dose 75+ series) 2030 Care Teams Retail Warehouse Associate Relationship Specialty Start Date End Date Beau Zavala MD [facility] [place] [id number] PCP - General Family Practice 11/04/18
--- OUTSIDE RECORDS SUMMARY | 2024-12-19 09:23 | XMS_ITS | Referral Summary ---
Author Organization [facility] Address [address] [place] [address] Care Team Providers Care Timing Adjuster Name Role Phone María Queen MD Primary Care Provider [phone] Encounters Date Type Department Care Team Description 11/21/2024 Documentation [facility] Minimally Invasive Surgery [address]th Floor, [place] [phone] Deloris Martinez Cancel (Pt has tested positive for COVID-19 and will cancel surgery for 11/23/24. Patient will call back to reschedule surgery after recovery.) 11/21/2024 Telephone [facility] ([facility] Minimally Invasive Surgery [address]th Floor, [place] [phone] Steve Deutsch MD PhD Medical Question/Miscellaneou s 11/20/[address] [facility] Minimally Invasive Surgery [address]th Floor, [place] [phone] Steve Deutsch MD PhD Medical Question/Miscellaneou s 11/17/2024 Telephone [facility] [address] [place] [phone] Mary De La Cruz RN 11/14/2024 1:30 PM SHINGLE PACKER Pre-Admission Testing [facility] for Preoperative Assessment and Planning [facility] ([facility]) [address] [place] [id number] Preoperative testing (Primary Dx) 11/08/2024 7:40 AM SHINGLE PACKER - 11/08/2024 11:59 PM SHINGLE PACKER Hospital Encounter [facility] [address] [place] [address] Rad, Amh Fluoro Hiatal hernia with GERD Discharge Disposition: Discharge to home or self care 10/18/2024 Telephone [facility] [address] [place] [address] Rozina Payne RN 10/13/2024 Telephone [facility]) [facility] Minimally Invasive Surgery [address] [place] [address] 12th Floor, [place] [address] Steve Deutsch MD PhD Medical Question/Miscellaneou s 10/12/2024 [facility] Minimally Invasive Surgery [address] [place] [address] 12th Floor, [place] [address] Steve Deutsch MD PhD Scheduling Appointments 10/11/2024 [facility] Minimally Invasive Surgery [address] [place] [address] 12th Floor, [place] [address] Steve Deutsch MD PhD Medical Question/Miscellaneou s; Scheduling Appointments 09/20/2024 2:40 PM SHINGLE PACKER Office Visit [facility]) [facility] Minimally Invasive Surgery [address] [place] [address] 12th Floor, [place] [address] Steve Deutsch MD PhD Hiatal hernia with GERD (Primary Dx); History of Hector fundoplication; Slipped Hector fundoplication from Last 3 Months Allergies Active Allergy Reactions Criticality Noted Date Comments Sulfa (Sulfonamide Antibiotics) Unknown 03/05 Childhood allergy Medications DEXILANT 60 mg capsuleIndicati ons:GERD Take 1 capsule (60 mg total) by mouth every morning 3 9 Active VOLTAREN 1 % gelIndications: Pain Apply 2 g topically daily as needed (pain) [address] (Cymbalta) 30 mg capsule Take 1 capsule (30 mg total) by mouth 2 (two) times a day 180 capsule 3 0 Active Additional Information Patient taking differently:30 mg oralNightly, Indications: Anxiety with Depression, Informant: Self, Reported on 11/14/2024 ALPRAZolam (XANAX) 0.25 mg tablet Take 1 tablet (0.25 mg total) by mouth nightly as needed for sleep 4 Active meloxicam (MOBIC) 7.5 mg tabletIndicatio ns:Osteoarthrit is Take 1 tablet (7.5 mg total) by mouth daily as needed for pain Active ibuprofen 200 mg tab/cap Take 2 tablet/capsule (400 mg total) by mouth every 6 (six) hours as needed for pain Active Active Problems Problem Noted Date Diagnosed Date Encounter for screening colonoscopy 04/04/2024 Sims's esophagus without dysplasia 10/31/2019 Overview (10/31/2019): Added automatically from request for surgery [id number] Hiatal hernia with GERD 03/28/2019 Overview (03/28/2019): Added automatically from request for surgery [id number] Hiatal hernia 02/10/2019 Overview (02/10/2019): Added automatically from request for surgery [id number] Colon cancer screening 02/10/2019 Overview (02/10/2019): Added automatically from request for surgery [id number] BMI 29.0-29.9,adult 11/03/2018 Overweight (BMI 25.0-29.9) 11/03/2018 Assessment & Plan (11/03/2018 5:28 PM SHINGLE PACKER): Current weight = 165 lb. Focus on lifestyle modification including changes to diet, incorporate regularly scheduled exercise, obtain sufficient sleep/maintaining proper sleep hygiene, and reduce overall level of stress. Phentermine 37.5 mg-advised the patient to take one half tablet by mouth every morning at approximately 6:00 AM and the second tablet at approximately 12 noon. Serious reactions including cardiac ischemia, tachycardia, hypertension, pulmonary hypertension, psychosis, dependency/abuse, and possible withdrawal symptoms discussed with the patient. Common reactions including palpitations, tachycardia, elevated blood pressure, restlessness, dizziness, insomnia, euphoria, dysphoria, tremor, headache, unpleasant taste, diarrhea, constipation, urticaria, impotence, libido changes also discussed with the patient. Baseline blood pressure the office today is within normal limits. The patient understands possible serious and common reactions and wishes to proceed with treatment. Will reevaluate for targeted weight loss in the next 1-2 months. Encounter to discuss test results 04/21/2018 Assessment & Plan (04/21/2018 5:14 PM CDT): Extensive counseling and education provided regarding lab abnormalities including elevated liver function test, B12, and lipid panel. See plan for additional details. RAJAN (generalized anxiety disorder) 04/21/2018 Assessment & Plan (11/03/2018 5:29 PM SHINGLE PACKER): Chronic condition, currently stable. The patient does not report any worsening anxiety at this time. No change to treatment regimen at this time. Supportive, insight-oriented counseling provided in the office today. Assessment & Plan (05/10/2018 1:27 PM CDT): Chronic, persistent symptoms of anxiety. Discontinue Prozac. Restart Cymbalta 30 mg daily. Monitor at six week interval. Assessment & Plan (04/21/2018 5:16 PM CDT): F41.1 - Generalized Anxiety Disorder - chronic, 1st persistent symptoms of Generalized Anxiety Disorder including restlessness or feeling of feeling keyed up or on edge, being easily fatigued, difficulty concentrating or mind going blank, irritability, muscle tension, and sleep disturbance. The patient reports that the anxiety, worry, or physical symptoms cause clinically significant distress or impairment in social, occupational, or other important areas of functioning. Initiate the following medications: - Prozac 10 mg daily Full informed consent provided by the patient to start/continue the current medication (or medications). The patient verbalized an understanding of the reason for initiating/continuing including the diagnosis and target symptoms for the medication recommended, the possible benefits and/or intended outcome of treatment, and as applicable, all available procedures involved in the proposed treatment, the possible risks and side effects, (including risk of medications to women and women who are ), the possible alternatives and complementary treatments, the possible results of not taking the recommended medications, (including but not limited to worsening symptoms, psychiatric instability, and even ), the possibility that this medication dose and/or frequency may need to be adjusted over time in consultation with Dr. Ramirez. The patient verbalized an understanding of the need for ongoing medical and psychiatric monitoring on an interval basis. At this time, the patient verbalizes full consent to initiate/continue and understands the benefits and risks and wishes to proceed with full, informed consent. - supportive, insight-oriented counseling provided in the office today. - the patient is not participating in therapy I will see the patient back in the office in six weeks or sooner as needed. Vitamin D deficiency 04/21/2018 Assessment & Plan (04/21/2018 5:15 PM CDT): Continue supplementation. Reviewed lab work with the patient in the office today. Persistent depressive disorder 04/21/2018 Assessment & Plan (11/03/2018 5:29 PM SHINGLE PACKER): Chronic, stable. Depressive symptoms are well controlled on current medication regimen. Tolerating medications without any reported side effects. No changes to medication regimen today. The patient denies suicidal and homicidal ideation. Reevaluate treatment/symptoms at interval per scheduled appointment. Assessment & Plan (04/21/2018 5:15 PM CDT): Chronic, stable. Does not report any symptoms at this time. Not currently prescribed any medications. The patient does not report any current suicidal or homicidal ideation. The patient does not report any auditory or visual hallucinations. The patient does not report any paranoid ideation. The patient does not report any symptoms of hypomania or mary. Sims's esophagus 03/30/2014 Gastroesophageal reflux disease 03/30/2014 Sensorineural hearing loss 02/22/2013 Hyperlipidemia 11/23/2012 Social History Tobacco Use Types Packs/Day Years Used Date Smoking Tobacco: Never Smokeless Tobacco: Never Alcohol Use Standard Drinks/Week Comments Yes 3 (1 standard drink = 0.6 oz pur e alcohol) AUDIT-C Answer Date Recorded Q1: How often do you have a drink containing alc ohol? 2-3 times a week 11/14/2024 Q2: How many drinks containi ng alcohol do you have on a typical day when you are drinking? 1 or 2 11/14/2024 Q3: How often do you have si x or more drinks on one occasion? Never 11/14/2024 Personal Safety Answer Date Recorded Have you ever been in or are you currently in a harmful physical or emotional relationship or is someone making you feel afraid or unsafe? Denies 11/14/2024 Comments No Sex and Gender Information Value Date Recorded Sex Assigned at Not on file Legal Sex Female 6:40 AM SHINGLE PACKER Gender Identity Not on file Sexual Orientation Not on file Last Filed Vital Signs Vital Sign Reading Time Taken Comments Blood Pressure 131/69 11/14/2024 1:40 PM SHINGLE PACKER Pulse 74 11/14/2024 1:35 PM SHINGLE PACKER Temperature 36.3 C (97.3 F) 06/20/2024 10:05 AM CDT Respiratory Rate 18 11/14/2024 1:35 PM SHINGLE PACKER Oxygen Saturation 98% 11/14/2024 1:35 PM SHINGLE PACKER Inhaled Oxygen Concentration - - Weight 78 kg (171 lb 15.3 oz) 11/14/2024 1:35 PM SHINGLE PACKER Height 160 cm (5' 3 ) 11/14/2024 1:35 PM SHINGLE PACKER Body Mass Index 30.46 11/14/2024 1:35 PM SHINGLE PACKER Plan of Treatment Upcoming Encounters Date Type Department Care Team (Latest Contact Info) Description 01/04/2025 10:45 AM CDT Hospital Encounter [facility] [address] [place] [address] Steve Deutsch MD PhD [address] [place] [address] 01/04/2025 10:45 AM CDT Anesthesia Event [facility] [address] [place] [address] Alyson Mcgarry NP [address] [place] [address] 01/04/2025 10:45 AM CDT - 01/04/2025 2:25 PM CDT Surgery [facility] [address] [place] [phone] Steve Deutsch MD PhD [address] [place] [address] XI REDO HIATAL HERNIA REPAIR Scheduled Procedures Name Priority Associated Diagnoses Date/Ti me XI REDO HIATAL HERNIA REPAIR Hiatal hernia with GERD 01/04/2025 10:45 AM CDT XI FUNDOPLICATION Hiatal hernia with GERD 01/04/2025 10:45 AM CDT ESOPHAGOGASTRODUODENOSCOPY Hiatal hernia with GERD 01/04/2025 10:45 AM CDT Procedures Procedure Name Priority Date/Time Associated Diagnosis Comments EGFR Routine 11/14/2024 2:09 PM SHINGLE PACKER Preoperative testing BASIC METABOLIC PANEL Routine 11/14/2024 2:09 PM SHINGLE PACKER Preoperative testing CBC WITHOUT DIFFERENTIAL Routine 11/14/2024 2:09 PM SHINGLE PACKER Preoperative testing TYPE AND SCREEN 14 DAY Routine 11/14/2024 2:09 PM SHINGLE PACKER Preoperative testing FL ESOPHAGRAM, SINGLE CONTRAST Schedule Routine, Read Routine (OP Routine) 11/08/2024 8:24 AM SHINGLE PACKER Hiatal hernia with GERD COLONOSCOPY 06/20/2024 9:38 AM CDT from Last 3 Months or Most Recently Relevant to Health Maintenance Results * TYPE AND SCREEN 14 DAY (11/14/2024 2:09 PM SHINGLE PACKER) Ilene, indirect Negative ABO Rh AB Positive [facility] Blood 11/14/2024 2:09 PM SHINGLE PACKER 11/14/2024 3:42 PM SHINGLE PACKER Narrative [facility] - 11/14/2024 4:50 PM SHINGLE PACKER Has the patient had Daratumumab or Isatuximab in the past 6 months?->No Is this test being ordered in advance for a procedure?->Yes Expected date of procedure:->11/23/24 Has the patient been transfused in the past 3 months?->No Has the patient been in the past 3 months?->No Alyson Mcgarry NP LAB BLOOD BANK TEST ORDERAB LES Final Result Performing Organization Address [facility] de Phone Number [facility] [place] [address] * eGFR (11/14/2024 2:09 PM SHINGLE PACKER) eGFR 69 >=60 mL/min/1. 73 m2 Comment: Interpretive Data Reference Interval Normal >/= 90 mL/min/1.73m2 Mildly decreased* 60 - 89 mL/min/1.73m2 Mildly to moderately decreased 45 - 59 mL/min/1.73m2 Moderately to severely decreased 30 - 44 mL/min/1.73m2 Severely decreased 15 - 29 mL/min/1.73m2 Kidney Failure < 15 mL/min/1.73m2 *Relative to young adult level Estimated glomerular filtration rate is determined by the 2020 CKD-EPI equation recommended by the National Kidney Foundation (A Unifying Approach to GFR Estimation: Recommendations of the NKF-ASK Task Force on Reassessing the Inclusion of Race in Diagnosing Kidney Disease, JASN 2020). The CKD-EPI equation should not be used for patients with unstable renal function and has not been validated in children and those over 70. Current interpretive data was last reviewed 2021. Blood 11/14/2024 2:09 PM SHINGLE PACKER 11/14/2024 3:39 PM SHINGLE PACKER Alyson Mcgarry NP LAB BLOOD ORDERABLES Final Result Performing Organization Address [facility] Co de Phone Number [facility] Department [place] [address] * (ABNORMAL) CBC without differential (11/14/2024 2:09 PM SHINGLE PACKER) [facility] WBC 4.0 3.8 - 9.9 K/cumm Hgb 14.2 11.9 - 15.5 g/dL [facility] Hct 41.9 35.6 - 45.5 % [facility] Plt 285 150 - 400 K/cumm [facility] MPV 9.4 9.1 - 12.3 fL [facility] RBC 4.25 3.90 - 5.20 M/cumm [facility] MCV 98.6(H) 81.3 - 96.4 fL [facility] MCH 33.4(H) 27.1 - 33.3 pg [facility] MCHC 33.9 32.3 - 35.7 g/dL [facility] RDW CV 12.2 11.1 - 14.9 % [facility] RDW SD 44.1 35.7 - 48.1 fL [facility] NRBC abs 0.00 0.00 - 0.01 K/cumm [facility] Blood 11/14/2024 2:09 PM SHINGLE PACKER 11/14/2024 3:40 PM SHINGLE PACKER Alyson Mcgarry NP LAB BLOOD ORDERABLES Final Result [facility] Department [place] [address] * Basic metabolic panel (11/14/2024 2:09 PM SHINGLE PACKER) [facility] Sodium 144 135 - 145 mmol/L Potassium, pl 3.9 3.3 - 4.9 mmol/L [facility] Chloride 107 97 - 110 mmol/L [facility] CO2 27 22 - 32 mmol/L [facility] Anion gap 10 2 - 15 mmol/L [facility] BUN 14 6 - 25 mg/dL [facility] Creatinine 0.90 0.60 - 1.10 mg/dL [facility] Glucose 102 70 - 199 mg/dL [facility] Comment: Interpretive Data Fasting glucose >/= 126 mg/dl is diagnostic for diabetes. Fasting is defined as no caloric intake for at least 8 hours. Fasting glucose between 100 mg/dl to 125 mg/dl is diagnostic of prediabetes. In a patient with classic symptoms of hyperglycemia or hyperglycemic crisis, a random glucose >/= 200 mg/dl is diagnostic for diabetes. In the absence of unequivocal hyperglycemia, results should be confirmed by repeat testing. The classification and Diagnosis of Diabetes Diabetes Care 2021; 46: S19-S40. Current interpretive data was last revised 2022. Calcium 9.2 8.5 - 10.3 mg/dL [facility] Blood 11/14/2024 2:09 PM SHINGLE PACKER 11/14/2024 3:39 PM SHINGLE PACKER Alyson Mcgarry NP LAB BLOOD ORDERABLES Final Result [facility] Department [place] [address] * FL Esophagram, Single Contrast (11/08/2024 8:24 AM SHINGLE PACKER) Anatomical Region Laterality Modality Body N/A Radio Fluoroscop y 11/08/2024 9:49 AM SHINGLE PACKER Narrative 11/08/2024 9:55 AM SHINGLE PACKER EXAM DESCRIPTION: FL ESOPHAGRAM BARIUM SWALLOW TO STOMACH, SINGLE CONTRAST REASON FOR STUDY: hiatal hernia 11/23 - hiatal hernia surgery Gerd - 20 years Biopsy in June of esophagus - benign COMPARISON: 02/07/2019 RADIATION DOSE: Dose: 363.09 uGym2 Dose Area Product (DAP) TECHNIQUE: Under fluoroscopic guidance, patient ingested thick and thin barium . FINDINGS: The site technician image is grossly unremarkable. Limited evaluation of the pharynx demonstrates no aspiration or penetration. There are mild tertiary contractions of the esophagus.. There is mild dilation of the distal esophagus just upstream to the hiatal hernia. There is a small to moderate hiatal hernia. Irregular contour of the herniated portion of the stomach is consistent with provided history of fundoplication. The duodenal sweep is unremarkable. There are cholecystectomy clips. No gastroesophageal reflux was observed. IMPRESSION: Small to moderate hiatal hernia. Findings consistent with the provided history of prior fundoplication. THIS IS AN ELECTRONICALLY VERIFIED FINAL REPORT 11/08/2024 9:55 AM - Electronically signed by Oswaldo Glover M.D. MZ: MZ Report ID: [id number] Reading Location: [id number] Procedure Note Oswaldo Glover MD - 11/08/2024 EXAM DESCRIPTION: FL ESOPHAGRAM BARIUM SWALLOW TO STOMACH, SINGLECONTRAST REASON FOR STUDY: hiatal hernia 11/23 - hiatal hernia surgery Gerd - 20 years Biopsy in June of esophagus - benign COMPARISON: 02/07/2019 RADIATION DOSE: Dose: 363.09 uGym2 Dose Area Product (DAP) TECHNIQUE: Under fluoroscopic guidance, patient ingested thick and thin barium . FINDINGS: The site technician image is grossly unremarkable. Limited evaluation of thepharynx demonstrates no aspiration or penetration. There are mild tertiary contractions of the esophagus.. There is mild dilation of the distal esophagus just upstream to the hiatal hernia. There is a small tomoderate hiatal hernia. Irregular contour of the herniated portion of the stomachis consistent with provided history of fundoplication. The duodenal sweep is unremarkable. There are cholecystectomy clips. No gastroesophagealreflux was observed. IMPRESSION: Small to moderate hiatal hernia. Findings consistent with the provided history of prior fundoplication. THIS IS AN ELECTRONICALLY VERIFIED FINAL REPORT 11/08/2024 9:55 AM - Electronically signed by Oswaldo Glover M.D. MZ: GABINO Report ID: [id number] Reading Location: [id number] Steve Deutsch MD PhD IMG FLUOROSCOPY PROCED URES Final Result * Colonoscopy (06/20/2024 9:38 AM CDT) Anatomical Region Laterality Modality Other Narrative Procedure Note Landon Monge MD - 06/20/2024 9:38 AM CDT ENDOSCOPY LAB Patient Name: Batsheva Hyatt Procedure Date: 06/20/2024 9:38 AM Date of : 1955 Admit Type: Outpatient Age: 69 Gender: Female Attending MD: Landon Monge M.D. Room: [facility] ENDOSCOPY ROOM 04 Note Status: Finalized Procedure: Colonoscopy Indications: High risk colon cancer surveillance: Personalhistory of colonic polyps, Last colonoscopy: March 2019 Providers: Landon Monge M.D. Referring MD: María Queen M.D. Medicines: Monitored Anesthesia Care Complications: No immediate complications. Estimated Blood Loss: Estimated blood loss: none. Procedure: Pre-Anesthesia Assessment: - Immediately prior to administration ofmedications, the patient was re-assessed for adequacy to receive sedatives. The benefits, risks and alternatives of theprocedure and sedation were discussed and informed consentwas obtained. All questions were answered. Please referto the signed informed consent document in the medical record. The scope was passed under direct vision.The [id number] was introduced through the anusand advanced to the cecum, identified by appendiceal orifice and ileocecal valve. The patient toleratedthe procedure well. The colonoscopy was somewhatdifficult due to a tortuous colon. Bowel prep wasadministered using a split dose. Findings: The perianal and digital rectal examinations were normal. Multiple small and large-mouthed diverticula were found in thesigmoid colon. The sigmoid colon was moderately tortuous. A 5 mm polyp was found in the transverse colon. The polyp wassessile. The polyp was removed with a cold snare. Resection and retrieval were complete. The exam was otherwise without abnormality on direct and retroflexion views. Impression: - Diverticulosis in the sigmoid colon. - Tortuous colon. - One 5 mm polyp in the transverse colon, removedwith a cold snare. Resected and retrieved. - The examination was otherwise normal on directand retroflexion views. Recommendation: - Repeat colonoscopy in 7 years for surveillance. - Return to primary care physician as previously scheduled. - Call my nurses in the GI office at [phone] ([phone]) for your final pathology results in7 days. - . Attending Participation: I personally performed the entire procedure. Electronically signed by Landon Monge MD Landon Monge M.D. 06/20/2024 10:09:16 AM Number of Addenda: 0 Note Initiated On: 06/20/2024 9:38 AM Landon Monge MD ENDOSCOPY PROCEDUR ES Final Result from Last 3 Months or Most Recently Relevant to Health Maintenance Insurance [facility] [employer] [facility] H[facility]/PPO Address: [address] [address] [place] [address] [employer] [facility] MEDICARE SUPPLEMENT MEDICARE [facility] MEDICARE SUPPLEMENT Advance Directives For more information, please contact: [phone] Documents on File Type Date Recorded Patient Event Manager Expl anation ADVANCE DIRECTIVE 06/28/2019 POWER OF A [employer] * Full Code (Latest Code Status on File) Date Activated Date Inactivated Comments 06/20/2024 8:31 AM 06/20/2024 2:59 PM * Full Code Date Activated Date Inactivated Comments 11/14/2019 8:33 AM 11/14/2019 2:35 PM * Full Code Date Activated Date Inactivated Comments 06/28/2019 5:06 PM 06/29/2019 8:42 PM * Full Code Date Activated Date Inactivated Comments 03/16/2019 11:50 AM 03/16/2019 4:46 PM Care Teams Timing Adjuster Relationship Specialty Start Date End Date María Queen MD [address] [place] [address] PCP - General Family Medicine 11/01/24
--- OUTSIDE RECORDS SUMMARY | 2024-12-19 09:23 | XMS_ITS | Clinical Summary ---
Author Organization [facility] Address [address] [address] Care Team Providers Care Dairy Management Specialist Name Role Phone María Queen MD Primary Care Provider [phone] Allergies Active Allergy Reactions Criticality Noted Date [...] (10/31/2019): Added automatically from request for surgery [id number] Hiatal hernia with GERD 03/28/2019 Overview (03/28/2019): Added automatically from request for surgery [id number] Hiatal hernia 02/10/2019 Overview (02/10/2019): Added automatically from request for surgery [id number] Colon cancer screening 02/10/2019 Overview (02/10/2019): Added automatically from request for surgery [id number] BMI 29.0-29.9,adult 11/03/2018 Overweight (BMI 25.0-29.9) 11/03/2018 Assessment & Plan (11/03/2018 5:28 PM SMALL EQUIPMENT OPERATOR): Current weight = 165 lb. Focus on [...] 04/21/2018 Assessment & Plan (11/03/2018 5:29 PM SMALL EQUIPMENT OPERATOR): Chronic condition, currently stable. The patient does [...] 04/21/2018 Assessment & Plan (11/03/2018 5:29 PM SMALL EQUIPMENT OPERATOR): Chronic, stable. Depressive symptoms are well controlled [...] 03/30/2014 Sensorineural hearing loss 02/22/2013 Hyperlipidemia 11/23/2012 Encounters Date Type Department Care Team Description 11/21/2024 Documentation [facility] ([facility]) - [facility] Minimally Invasive Surgery [address] Floor, [place] [address] Deloris Martinez (Pt has tested positive for COVID-19 and will cancel surgery for 11/23/24. Patient will call back to reschedule surgery after recovery.) 11/21/2024 Telephone [facility] ([facility]) - [facility] Minimally Invasive Surgery [address] [facility] 12th Floor, [place] [phone] Steve Deutsch MD PhD Medical Question/Miscellaneou s 11/20/2024 Telephone [facility] ([facility]) - [facility] Minimally Invasive Surgery [address] [facility] 12th Floor, [place] [phone] Steve Deutsch MD PhD Medical Question/Miscellaneou s 11/17/2024 Telephone [facility] GI Center [address] [place] [phone] Mary De La Cruz, RN 11/14/2024 1:30 PM SMALL EQUIPMENT OPERATOR Pre-Admission Testing [facility] Center for Preoperative Assessment and Planning [facility] ([facility] [address] [place] [phone] Preoperative testing (Primary Dx) 11/08/2024 7:40 AM SMALL EQUIPMENT OPERATOR - 11/08/2024 11:59 PM SMALL EQUIPMENT OPERATOR Hospital Encounter [facility] [address] [place] [id number] Rad, Amh Fluoro Hiatal hernia with GERD Discharge Disposition: Discharge to home or self care 10/18/2024 Telephone [facility] Center [address] [place] [phone] Rozina Payne, CESAR 10/13/2024 Telephone [facility]) [facility] Minimally Invasive Surgery [address] [place] [address] Floor, [place] [phone] Steve Deutsch MD PhD Medical Question/Miscellaneou s 10/12/2024 Telephone [facility]) - [facility] Minimally Invasive Surgery [address] [place] [address] Floor, [place] [phone] Steve Deutsch MD PhD Scheduling Appointments 10/11/2024 [facility]) [facility] Minimally Invasive Surgery [address] [place] [address] Floor, [place] [phone] Steve Deutsch MD PhD Medical Question/Miscellaneou s; Scheduling Appointments 09/20/2024 2:40 PM SMALL EQUIPMENT OPERATOR Office Visit [facility]) - [facility] Minimally Invasive Surgery [address] [place] [address] Floor, [place] [phone] Steve Deutsch MD PhD Hiatal hernia with GERD (Primary Dx); History of Cong fundoplication; Slipped Cong fundoplication from Last 3 Months Surgical History Surgery Date Site/Laterality Comments HYSTERECTOMY CHOLECYSTECTOMY ESOPHAGOGASTRODUODENOSCOPY COLONOSCOPY CONG FUNDOPLICATION 10/04/2018 - 10/03/2019 Medical History Medical History Date Comments GERD (gastroesophageal reflux disease) Hiatal hernia Serum lipids high Sims's esophagus Chronic constipation Depression Family History Medical History Relation Name Comments Alzheimer's disease Father Alzheime r's dementia - (Added by TW Conv) Heart attack Father Family history of myocardial infarction - (Added by TW Conv) Kidney cancer Father Family history of malignant neoplasm of kidney - (Added by TW Conv) Alzheimer's disease Mother Alzheime r's dementia - (Added by TW Conv) Anesthesia problems Neg Hx Malig Hyperthermia Neg Hx Pseudochol deficiency Neg Hx Relation Name Status Comments Father Alive Mother Alive Social History Tobacco Use Types Packs/Day [...] on file Legal Sex Female 6:40 AM SMALL EQUIPMENT OPERATOR Gender Identity Not on file Sexual Orientation Not on file Obstetrics History Last Filed Vital Signs Vital Sign Reading Time Taken Comments Blood Pressure 131/69 11/14/2024 1:40 PM SMALL EQUIPMENT OPERATOR Pulse 74 11/14/2024 1:35 PM SMALL EQUIPMENT OPERATOR Temperature 36.3 C (97.3 F) 06/20/2024 10:05 AM CDT Respiratory Rate 18 11/14/2024 1:35 PM SMALL EQUIPMENT OPERATOR Oxygen Saturation 98% 11/14/2024 1:35 PM SMALL EQUIPMENT OPERATOR Inhaled Oxygen Concentration - - Weight 78 kg (171 lb 15.3 oz) 11/14/2024 1:35 PM SMALL EQUIPMENT OPERATOR Height 160 cm (5' 3 ) 11/14/2024 1:35 PM SMALL EQUIPMENT OPERATOR Body Mass Index 30.46 11/14/2024 1:35 PM SMALL EQUIPMENT OPERATOR Plan of Treatment Upcoming Encounters Date Type Department Care Team (Latest Contact Info) Description 01/04/2025 10:45 AM CDT Hospital Encounter [facility] Operating Room [address] [place] [phone] Steve Deutsch MD PhD [address] [place] [address] 01/04/2025 10:45 AM CDT Anesthesia Event [facility] Operating Room [address] [place] [phone] Alyson Mcgarry, MANGA ARTIST [address] [place], [place] [phone] 01/04/2025 10:45 AM CDT - 01/04/2025 2:25 PM CDT Surgery [facility] Operating Room [address] [place] [phone] Steve Deutsch MD PhD [address] [place] [address] XI REDO HIATAL HERNIA REPAIR Scheduled Procedures Name Priority Associated Diagnoses Date/Ti me XI REDO HIATAL HERNIA REPAIR Hiatal hernia with GERD 01/04/2025 10:45 AM CDT XI FUNDOPLICATION Hiatal hernia with GERD 01/04/2025 10:45 AM CDT ESOPHAGOGASTRODUODENOSCOPY Hiatal hernia with GERD 01/04/2025 10:45 AM CDT Health Maintenance Due Date Last Done Comments Breast Cancer Screening-Mammogram 1955 Depression Screening 1955 Hepatitis C Screening 1955 Osteoporosis Screening-Bone Density Scan 1955 Hepatitis B Screening 1973 Pneumococcal vaccine 65+ (1 of 1 - PCV) 2005 Zoster Vaccine (2 of 3) 11/19/2015 09/24/2015 Well Visit 65+ 2020 DTaP/Tdap/Td Vaccine (2 - Td or Tdap) 11/15/202209/2013 Influenza Vaccine (#1) 2024 07/04/2016, 2014 Fall Risk Assessment 11/14/2025 11/14/2024 Colon Cancer Screening-Colonoscopy 06/20/20342023, 03/16/2019 Colon Cancer Screening-CT Colonography Discontinued , 03/16/2019 Colon Cancer Screening-DNA Stool Discontinued 06/20/20 24, 03/16/2019 Colon Cancer Screening-FIT Discontinued 06/20/2024, Colon Cancer Screening-Sigmoidoscopy Discontinued 06/04, 03/16/2019 Procedures Procedure Name Priority Date/Time Associated Diagnosis Comments EGFR Routine 11/14/2024 2:09 PM SMALL EQUIPMENT OPERATOR Preoperative testing BASIC METABOLIC PANEL Routine 11/14/2024 2:09 PM SMALL EQUIPMENT OPERATOR Preoperative testing CBC WITHOUT DIFFERENTIAL Routine 11/14/2024 2:09 PM SMALL EQUIPMENT OPERATOR Preoperative testing TYPE AND SCREEN 14 DAY Routine 11/14/2024 2:09 PM SMALL EQUIPMENT OPERATOR Preoperative testing FL ESOPHAGRAM, SINGLE CONTRAST Schedule Routine, Read Routine (OP Routine) 11/08/2024 8:24 AM SMALL EQUIPMENT OPERATOR Hiatal hernia with GERD COLONOSCOPY 06/20/2024 9:38 AM CDT from Last 3 Months or Most Recently Relevant to Health Maintenance Results * TYPE AND SCREEN 14 DAY (11/14/2024 2:09 PM SMALL EQUIPMENT OPERATOR) Ilene, indirect Negative ABO Rh AB Positive [facility] Blood 11/14/2024 2:09 PM SMALL EQUIPMENT OPERATOR 11/14/2024 3:42 PM SMALL EQUIPMENT OPERATOR Narrative [facility] - 11/14/2024 4:50 PM SMALL EQUIPMENT OPERATOR Has the patient had Daratumumab or Isatuximab in the past 6 months?->No Is this test being ordered in advance for a procedure?->Yes Expected date of procedure:->11/23/24 Has the patient been transfused in the past 3 months?->No Has the patient been in the past 3 months?->No Alyson Mcgarry NP LAB BLOOD BANK TEST ORDERAB LES Final Result Performing Organization Address [facility] Co de Phone Number [facility] Department of [employer] [place] [address] * eGFR (11/14/2024 2:09 PM SMALL EQUIPMENT OPERATOR) [facility] eGFR 69 >=60 mL/min/1. 73 m2 Comment: [...] last reviewed 2021. Blood 11/14/2024 2:09 PM SMALL EQUIPMENT OPERATOR 11/14/2024 3:39 PM SMALL EQUIPMENT OPERATOR Alyson Mcgarry NP LAB BLOOD ORDERABLES Final Result Performing Organization Address [facility] Co de Phone Number KIRK CARTER [facility] [place] [address] * (ABNORMAL) CBC without differential (11/14/2024 2:09 PM SMALL EQUIPMENT OPERATOR) [facility] WBC 4.0 3.8 - 9.9 K/cumm Hgb 14.2 11.9 - 15.5 g/dL [facility] Hct 41.9 35.6 - 45.5 % [facility] Plt 285 150 - 400 K/cumm [facility] MPV 9.4 9.1 - 12.3 fL [facility] RBC 4.25 3.90 - 5.20 M/cumm [facility] MCV 98.6(H) 81.3 - 96.4 fL [facility] MCH 33.4(H) 27.1 - 33.3 pg [facility] MCHC 33.9 32.3 - 35.7 g/dL [facility] RDW CV 12.2 11.1 - 14.9 % [facility] RDW SD 44.1 35.7 - 48.1 fL [facility] NRBC abs 0.00 0.00 - 0.01 K/cumm [facility] Blood 11/14/2024 2:09 PM SMALL EQUIPMENT OPERATOR 11/14/2024 3:40 PM SMALL EQUIPMENT OPERATOR Alyson Mcgarry NP LAB BLOOD ORDERABLES Final Result Performing Organization Address City/State/[facility] Co de Phone Number [facility] Department [place] [address] * Basic metabolic panel (11/14/2024 2:09 PM SMALL EQUIPMENT OPERATOR) [facility] Sodium 144 135 - 145 mmol/L Potassium, pl 3.9 3.3 - 4.9 mmol/L [facility] Chloride 107 97 - 110 mmol/L [facility] CO2 27 22 - 32 mmol/L [facility] Anion gap 10 2 - 15 mmol/L [facility] BUN 14 6 - 25 mg/dL [facility] Creatinine 0.90 0.60 - 1.10 mg/dL [facility] Glucose 102 70 - 199 mg/dL [facility] Comment: Interpretive Data Fasting glucose >/= 126 [...] classification and Diagnosis of Diabetes Diabetes Care 202; 46: S19-S40. Current interpretive data was last revised 2022. Calcium 9.2 8.5 - 10.3 mg/dL [facility] MEJI[facility] Blood 11/14/2024 2:09 PM SMALL EQUIPMENT OPERATOR 11/14/2024 3:39 PM SMALL EQUIPMENT OPERATOR Alyson Mcgrary NP LAB BLOOD ORDERABLES Final Result [facility] Department [place] [address] * FL Esophagram, Single Contrast (11/08/2024 8:24 AM SMALL EQUIPMENT OPERATOR) Anatomical Region Laterality Modality Body N/A Radio Fluoroscop y 11/08/2024 9:49 AM SMALL EQUIPMENT OPERATOR Narrative 11/08/2024 9:55 AM SMALL EQUIPMENT OPERATOR EXAM DESCRIPTION: FL ESOPHAGRAM BARIUM SWALLOW TO STOMACH, SINGLE CONTRAST REASON FOR STUDY: hiatal hernia 11/23 - hiatal hernia surgery Gerd - 20 years Biopsy in June of esophagus - benign COMPARISON: 02/07/2019 RADIATION DOSE: Dose: 363.09 uGym2 Dose Area Product (DAP) TECHNIQUE: Under fluoroscopic guidance, patient ingested thick and thin barium . FINDINGS: The snow blower image is grossly unremarkable. Limited evaluation of [...] Oswaldo Glover M.D. MZ: GABINO Report ID: [id number] Reading Location: [id number] Procedure Note Oswaldo Glover MD - 11/08/2024 EXAM DESCRIPTION: FL ESOPHAGRAM BARIUM SWALLOW TO STOMACH, SINGLECONTRAST REASON FOR STUDY: hiatal hernia 11/23 - hiatal hernia surgery Gerd - 20 years Biopsy in June of esophagus - benign COMPARISON: 02/07/2019 RADIATION DOSE: Dose: 363.09 uGym2 Dose Area Product (DAP) TECHNIQUE: Under fluoroscopic guidance, patient ingested thick and thin barium . FINDINGS: The snow blower image is grossly unremarkable. Limited evaluation of [...] Oswaldo Glover M.D. MZ: MZ Report ID: [id number] Reading Location: [id number] Steve Deutsch MD PhD IMG FLUOROSCOPY PROCED URES Final Result * Colonoscopy (06/20/2024 9:38 AM CDT) Anatomical Region Laterality Modality Other Narrative Procedure Note Landon Monge MD - 06/20/2024 9:38 AM CDT ENDOSCOPY LAB Patient Name: Batsheva Hyatt Procedure Date: 06/20/2024 9:38 AM Date of : 1955 Admit Type: Outpatient Age: 69 Gender: Female Attending MD: Landon Monge M.D. Room: [facility] ENDOSCOPY ROOM 04 Note Status: Finalized Procedure: [...] The scope was passed under direct vision.The [id number] was introduced through the anusand advanced to [...] my nurses in the GI office at [phone] ([phone]) for your final pathology results in7 days. - . Attending Participation: I personally performed the entire procedure. Electronically signed by Landon Monge MD Landon Monge M.D. 06/20/2024 10:09:16 AM Number of Addenda: 0 Note Initiated On: 06/20/2024 9:38 AM Landon Monge MD ENDOSCOPY PROCEDUR ES Final Result from Last 3 Months or Most Recently Relevant to Health Maintenance Insurance [facility] [place] [address] [employer] MEDICARE [facility] MEDICARE SUPPLEMENT MEDICARE [facility] MEDICARE SUPPLEMENT Advance Directives For more information, please contact: [phone] Documents on File Type Date Recorded Patient Road Mender Expl anation ADVANCE DIRECTIVE 06/28/2019 POWER OF [...] 11:50 AM 03/16/2019 4:46 PM Care Teams Dairy Management Specialist Relationship Specialty Start Date End Date María Queen MD [address] [place] [address] PCP - General Family Medicine 11/01/24
--- OUTSIDE RECORDS SUMMARY | 2024-12-19 09:24 | XMS_ITS | Encounter Summary ---
Author Organization [facility] Address [address] [place] [address] Phone Care Team Providers Care Legal Director Name Role Phone María Queen MD Primary Care Provider [phone] Reason for Visit * Reason Onset Date Comments Medical Question/Miscellaneous 11/20/2024 Encounter Details Date Type Department Care Team (Late st Contact Info) Description 11/20/2024 Telephone [place] [facility] ([facility]) - [facility] Minimally Invasive Surgery [address] [facility] Advanced Medicine 12th Floor, [place] [address] Steve Deutsch MD PhD [address] [place], [place] [id number] Medical Question/Miscellaneous Social History Tobacco Use Types Packs/Day Years [...] on file 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 Yes, No answer Reason for call?: Patient calling to inform us she has Covid, Patient has surgery this with Dr Deutsch (Read message back to caller and ask them if there is anything else they'd like to add to the message) Who is the caller: Batsheva What is the best number for them to contact for a call back: [phone] INE OPERATOR SLITTER TECHNICIAN documented in this encounter Plan of Treatment Upcoming Encounters Date Type Department Care Team (Latest Contact Info) Description 01/04/2025 10:45 AM CDT Hospital Encounter [facility] Operating Room [address] [place] [phone] Steve Deutsch MD PhD [address] [place] [address] 01/04/2025 10:45 AM CDT Anesthesia Event [facility] Operating Room [address] [place] [phone] Alyson Mcgarry, MAGDIEL [address] [place] [address] 01/04/2025 10:45 AM CDT - 01/04/2025 2:25 PM CDT Surgery [facility] Operating Room [address] [place] [phone] Steve Deutsch MD PhD [address] [place] [address] XI REDO HIATAL HERNIA REPAIR Scheduled Procedures Name Priority Associated Diagnoses Date/Ti me XI REDO HIATAL HERNIA REPAIR Hiatal hernia with GERD 01/04/2025 10:45 AM CDT XI FUNDOPLICATION Hiatal hernia with GERD 01/04/2025 10:45 AM CDT ESOPHAGOGASTRODUODENOSCOPY Hiatal hernia with GERD 01/04/2025 10:45 AM CDT documented as of this encounter Visit Diagnoses Not on filedocumented in this encounter Care Teams Legal Director Relationship Specialty Start Date End Date María Queen MD [address] [place] [address] PCP - General Family Medicine 11/01/24 documented as of this encounter
--- OUTSIDE RECORDS SUMMARY | 2024-12-19 09:24 | XMS_ITS | Encounter Summary ---
Author Organization [facility] Address [address] [place] [address] Phone Care Team Providers Care Medicine And Health Service Manager Name Role Phone María Queen MD Primary Care Provider [phone] Reason for Visit * Reason Onset Date Comments Medical Question/Miscellaneous 11/21/2024 Encounter Details Date Type Department Care Team (Late st Contact Info) Description 11/21/2024 Telephone [place] [facility] ([facility]) - [facility] Minimally Invasive Surgery [address] [facility] Advanced Medicine 12th Floor, [place] [address] Steve Deutsch MD PhD [address] [place], [place] [id number] Medical Question/Miscellaneous Social History Tobacco Use Types [...] on file 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 CAL PHYSICS RESEARCHER * Telephone Encounter - Adele Herrera - 11/21/2024 10:01 AM CST Patient Query: Was an attempt to transfer to the assigned clinical staff or backline? no Reason for call?: Patient has surgery scheduled for the but they have a covid and a swollen glad so they are requesting a call to discuss (Read message back to caller and ask them if there is anything else they'd like to add to the message) Who is the caller: Batsheva Belcher What is the best number for them to contact for a call back: [phone] CAL PHYSICS RESEARCHER documented in this encounter Plan of Treatment Upcoming Encounters Date Type Department Care Team (Latest Contact Info) Description 01/04/2025 10:45 AM CDT Hospital Encounter [facility] Operating Room [address] [place] [phone] Steve Deutsch MD PhD [address] [place] [address] 01/04/2025 10:45 AM CDT Anesthesia Event [facility] Operating [address] [place] [phone] Alyson Mcgarry NP [address] [place] [address] 01/04/2025 10:45 AM CDT - 01/04/2025 2:25 PM CDT Surgery [facility] Operating [address] [place] [address] Steve Deutsch MD PhD [address] [place] [address] XI REDO HIATAL HERNIA REPAIR Scheduled Procedures Name Priority Associated Diagnoses Date/Ti me XI REDO HIATAL HERNIA REPAIR Hiatal hernia with GERD 01/04/2025 10:45 AM CDT XI FUNDOPLICATION Hiatal hernia with GERD 01/04/2025 10:45 AM CDT ESOPHAGOGASTRODUODENOSCOPY Hiatal hernia with GERD 01/04/2025 10:45 AM CDT documented as of this encounter Visit Diagnoses Not on filedocumented in this encounter Care Teams Medicine And Health Service Manager Relationship Specialty Start Date End Date María Queen MD [address] [place] [address] PCP - General Family Medicine 11/01/24 documented as of this encounter
[2024-12-19] MEDS: MORPHINE SULFATE (*CRX) 4 MG/ML INJ IV PUSH (10:08)
[2024-12-19] MEDS: ONDANSETRON INJ 4 MG/2 ML VIAL IV PUSH (10:08)
--- OUTSIDE RECORDS SUMMARY | 2024-12-19 10:09 | XMS_ITS | Clinical Summary ---
Author Organization [facility] Address [address] [place] [address] Phone Care Team Providers Care Bailer Operators Supervisor Name Role Phone Beau Zavala MD Primary Care Provider [phone] Allergies Active Allergy Reactions Criticality Noted Date [...] Depression Overview (11/15/2012): Sees Dr. Iverson-psychiatrist in [place] Hx of insomnia Immunizations Immunization Administration Dates [...] on file Legal Sex Female 8:34 AM IMPROVEMENT LEAD Gender Identity Not on file Sexual Orientation Not on file Occupation Industry Job Start Date Job End Date Not on file Not on file Not on file Not on file Last Filed Vital Signs Vital Sign Reading Time Taken Comments Blood Pressure 112/64 11/15/2012 11:17 AM IMPROVEMENT LEAD Pulse 68 11/15/2012 11:17 AM IMPROVEMENT LEAD Temperature 37 C (98.6 F) 11/15/2012 11:17 AM IMPROVEMENT LEAD Respiratory Rate 18 11/15/2012 11:1 7 AM IMPROVEMENT LEAD Oxygen Saturation - - Inhaled Oxygen Concentration - - Weight 80.2 kg (176 lb 12.8 oz) 013 11:17 AM IMPROVEMENT LEAD Height 160 cm (5' 3 ) 11/15/2012 11:17 AM IMPROVEMENT LEAD Body Mass Index 31.32 11/15/2012 11:17 AM IMPROVEMENT LEAD Plan of Treatment Health Maintenance Due Date [...] - 1-dose 75+ series) 2030 Care Teams Bailer Operators Supervisor Relationship Specialty Start Date End Date Beau Zavala MD [facility] [place] [address] PCP - General Family Practice 11/04/18
--- OUTSIDE RECORDS SUMMARY | 2024-12-19 10:09 | XMS_ITS | Clinical Summary ---
Author Organization [facility] Address [address] [address] Phone Care Team Providers Care Trailer Body Assembler Name Role Phone María Queen MD Primary Care Provider [phone] Medications Linzess 72 MCG Capsule TAKE 1 [...] Recently Relevant to Health Maintenance Care Teams Trailer Body Assembler Relationship Specialty Start Date End Date María Queen MD [address] [place] [address] PCP - General Family Medicine 02/19/20
--- OUTSIDE RECORDS SUMMARY | 2024-12-19 10:09 | XMS_ITS | Encounter Summary ---
Author Organization [facility] Address [address] [place] [address] Phone Care Team Providers Care Asset Protection Professional Name Role Phone María Queen MD Primary Care Provider [phone] Reason for Visit * Reason Onset Date Comments Medical Question/Miscellaneous 11/20/2024 Encounter Details Date Type Department Care Team (Late st Contact Info) Description 11/20/2024 Telephone [place] [facility] ([facility]) - [facility] Minimally Invasive Surgery [address] [facility] Advanced Medicine 12th Floor, [place] [address] Steve Deutsch MD PhD [address] [place], [place] [id number] Medical Question/Miscellaneous Social History Tobacco Use Types [...] on file 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 Gender Identity Not on file Sexual Orientation [...] them to contact for a call back: [phone] SPORT COORDINATOR documented in this encounter Plan of Treatment Upcoming Encounters Date Type Department Care Team (Latest Contact Info) Description 01/04/2025 10:45 AM CDT Hospital Encounter [facility] Operating Room [address] [place] [phone] Steve Deutsch MD PhD [address] [place] [address] 01/04/2025 10:45 AM CDT Anesthesia Event [facility] Operating [address] [place] [phone] Alyson Mcgarry, MAGDIEL [address] [place] [address] 01/04/2025 10:45 AM CDT - 01/04/2025 2:25 PM CDT Surgery [facility] Operating [address] [place] [address] Steve Deutsch MD PhD [address] [place] [address] XI REDO HIATAL HERNIA REPAIR Scheduled Procedures Name Priority Associated Diagnoses Date/Ti me XI REDO HIATAL HERNIA REPAIR Hiatal hernia with GERD 01/04/2025 10:45 AM CDT XI FUNDOPLICATION Hiatal hernia with GERD 01/04/2025 10:45 AM CDT ESOPHAGOGASTRODUODENOSCOPY Hiatal hernia with GERD 01/04/2025 10:45 AM CDT documented as of this encounter Visit Diagnoses Not on filedocumented in this encounter Care Teams Asset Protection Professional Relationship Specialty Start Date End Date María Queen MD [address] [place] [address] PCP - General Family Medicine 11/01/24 documented as of this encounter
--- OUTSIDE RECORDS SUMMARY | 2024-12-19 10:09 | XMS_ITS | Encounter Summary ---
Author Organization [facility] Address [address] [place] [address] Phone Care Team Providers Care Hander In Name Role Phone María Queen MD Primary Care Provider [phone] Reason for Visit * Reason Onset Date Comments Medical Question/Miscellaneous 11/21/2024 Encounter Details Date Type Department Care Team (Late st Contact Info) Description 11/21/2024 Telephone [place] [facility] ([facility]) - [facility] Minimally Invasive Surgery [address] [facility] Advanced Medicine 12th [address], [place] [address] Steve Deutsch MD PhD [address] [place], [place] [phone] Medical Question/Miscellaneous Social History Tobacco Use Types [...] on file 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 NT SPECIALIST * Telephone Encounter - Adele Herrera - [...] them to contact for a call back: [phone] NT SPECIALIST documented in this encounter Plan of Treatment Upcoming Encounters Date Type Department Care Team (Latest Contact Info) Description 01/04/2025 10:45 AM CDT Hospital Encounter [facility] Operating Room [address] [place] [address] Steve Deutsch MD PhD [address] [place] [address] 01/04/2025 10:45 AM CDT Anesthesia Event [facility] Operating [address] [place] [phone] Alyson Mcgarry NP [address] [place] [address] 01/04/2025 10:45 AM CDT - 01/04/2025 2:25 PM CDT Surgery [facility] Operating [address] [place] [address] Steve Deutsch MD PhD [address] [place] [address] XI REDO HIATAL HERNIA REPAIR Scheduled Procedures Name Priority Associated Diagnoses Date/Ti me XI REDO HIATAL HERNIA REPAIR Hiatal hernia with GERD 01/04/2025 10:45 AM CDT XI FUNDOPLICATION Hiatal hernia with GERD 01/04/2025 10:45 AM CDT ESOPHAGOGASTRODUODENOSCOPY Hiatal hernia with GERD 01/04/2025 10:45 AM CDT documented as of this encounter Visit Diagnoses Not on filedocumented in this encounter Care Teams Hander In Relationship Specialty Start Date End Date María Queen MD [address] [place] [address] PCP - General Family Medicine 11/01/24 documented as of this encounter
--- OUTSIDE RECORDS SUMMARY | 2024-12-19 10:09 | XMS_ITS | Clinical Summary ---
Author Organization [facility] Address [address] [address] Care Team Providers Care Clipper Automatic Name Role Phone María Queen MD Primary Care Provider [phone] Allergies Active Allergy Reactions Criticality Noted Date [...] (10/31/2019): Added automatically from request for surgery [id number] Hiatal hernia with GERD 03/28/2019 Overview (03/28/2019): Added automatically from request for surgery [id number] Hiatal hernia 02/10/2019 Overview (02/10/2019): Added automatically from request for surgery [id number] Colon cancer screening 02/10/2019 Overview (02/10/2019): Added automatically from request for surgery [id number] BMI 29.0-29.9,adult 11/03/2018 Overweight (BMI 25.0-29.9) 11/03/2018 Assessment & Plan (11/03/2018 5:28 PM TROPHY ASSEMBLER): Current weight = 165 lb. Focus on [...] 04/21/2018 Assessment & Plan (11/03/2018 5:29 PM TROPHY ASSEMBLER): Chronic condition, currently stable. The patient does [...] 04/21/2018 Assessment & Plan (11/03/2018 5:29 PM TROPHY ASSEMBLER): Chronic, stable. Depressive symptoms are well controlled [...] Team Description 11/21/2024 Documentation [facility] - [facility] Minimally Invasive Surgery [address] [place], [place] [address] Deloris Martinez (Pt has tested positive for COVID-19 and will cancel surgery for 11/23/24. Patient will call back to reschedule surgery after recovery.) 11/21/2024 Telephone [facility] ([facility] - [facility] Minimally Invasive Surgery [address] [facility] 12th Floor, [place] [phone] Steve Deutsch MD PhD Medical Question/Miscellaneou s 11/20/2024 Telephone [facility] ([facility] - [facility] Minimally Invasive Surgery [address] [facility] 12th Floor, [place] [phone] Steve Deutsch MD PhD Medical Question/Miscellaneou s 11/17/2024 Telephone [facility] [address] [place] [phone] Mary De La Cruz, RN 11/14/2024 1:30 PM TROPHY ASSEMBLER Pre-Admission Testing [facility] Center for Preoperative Assessment and Planning [facility] ([facility]) [address] [place] [phone] Preoperative testing (Primary Dx) 11/08/2024 7:40 AM TROPHY ASSEMBLER - 11/08/2024 11:59 PM TROPHY ASSEMBLER Hospital Encounter [facility] [address] [place] [id number] Rad, Amh Fluoro Hiatal hernia with GERD Discharge Disposition: Discharge to home or self care 10/18/2024 Telephone [facility] [address] [place] [phone] Rozina Payne, CESAR 10/13/2024 Telephone [facility]) [facility] Minimally Invasive Surgery [address] [place] [address] Floor, [place] [phone] Steve Deutsch MD PhD Medical Question/Miscellaneou s 10/12/2024 Telephone [facility]) - [facility] Minimally Invasive Surgery [address] [place] [address] Floor, [place] [phone] Steve Deutsch MD PhD Scheduling Appointments 10/11/2024 [facility]) [facility] Minimally Invasive Surgery [address] [place] [address] Floor, [place] [phone] Steve Deutsch MD PhD Medical Question/Miscellaneou s; Scheduling Appointments 09/20/2024 2:40 PM TROPHY ASSEMBLER Office Visit [facility]) - [facility] Minimally Invasive Surgery [address] [place] [address] Floor, [place] [phone] Steve Deutsch MD PhD Hiatal hernia with [...] on file Legal Sex Female 6:40 AM TROPHY ASSEMBLER Gender Identity Not on file Sexual Orientation Not on file Obstetrics History Last Filed Vital Signs Vital Sign Reading Time Taken Comments Blood Pressure 131/69 11/14/2024 1:40 PM TROPHY ASSEMBLER Pulse 74 11/14/2024 1:35 PM TROPHY ASSEMBLER Temperature 36.3 C (97.3 F) 06/20/2024 10:05 AM CDT Respiratory Rate 18 11/14/2024 1:35 PM TROPHY ASSEMBLER Oxygen Saturation 98% 11/14/2024 1:35 PM TROPHY ASSEMBLER Inhaled Oxygen Concentration - - Weight 78 kg (171 lb 15.3 oz) 11/14/2024 1:35 PM TROPHY ASSEMBLER Height 160 cm (5' 3 ) 11/14/2024 1:35 PM TROPHY ASSEMBLER Body Mass Index 30.46 11/14/2024 1:35 PM TROPHY ASSEMBLER Plan of Treatment Upcoming Encounters Date Type Department Care Team (Latest Contact Info) Description 01/04/2025 10:45 AM CDT Hospital Encounter [facility] Operating Room [address] [place] [phone] Steve Deutsch MD PhD [address] [place] [address] 01/04/2025 10:45 AM CDT Anesthesia Event [facility] Operating Room [address] [place] [phone] Alyson Mcgarry, CYLINDER DIE MACHINE OPERATOR [address] [place], [place] [phone] 01/04/2025 10:45 AM CDT - 01/04/2025 2:25 PM CDT Surgery [facility] Operating Room [address] [place] [phone] Steve Deutsch MD PhD [address] [place] [address] XI REDO HIATAL HERNIA REPAIR Scheduled Procedures [...] Diagnosis Comments EGFR Routine 11/14/2024 2:09 PM TROPHY ASSEMBLER Preoperative testing BASIC METABOLIC PANEL Routine 11/14/2024 2:09 PM TROPHY ASSEMBLER Preoperative testing CBC WITHOUT DIFFERENTIAL Routine 11/14/2024 2:09 PM TROPHY ASSEMBLER Preoperative testing TYPE AND SCREEN 14 DAY Routine 11/14/2024 2:09 PM TROPHY ASSEMBLER Preoperative testing FL ESOPHAGRAM, SINGLE CONTRAST Schedule Routine, Read Routine (OP Routine) 11/08/2024 8:24 AM TROPHY ASSEMBLER Hiatal hernia with GERD COLONOSCOPY 06/20/2024 9:38 AM CDT from Last 3 Months or Most Recently Relevant to Health Maintenance Results * TYPE AND SCREEN 14 DAY (11/14/2024 2:09 PM TROPHY ASSEMBLER) Ilene, indirect Negative ABO Rh AB Positive [facility] Blood 11/14/2024 2:09 PM TROPHY ASSEMBLER 11/14/2024 3:42 PM TROPHY ASSEMBLER Narrative [facility] - 11/14/2024 4:50 PM TROPHY ASSEMBLER Has the patient had Daratumumab or Isatuximab in the past 6 months?->No Is this test being ordered in advance for a procedure?->Yes Expected date of procedure:->11/23/24 Has the patient been transfused in the past 3 months?->No Has the patient been in the past 3 months?->No Alyson Mcgarry NP LAB BLOOD BANK TEST ORDERAB LES Final Result Performing Organization Address [facility] Co de Phone Number [facility] [place] [address] * eGFR (11/14/2024 2:09 PM TROPHY ASSEMBLER) [facility] eGFR 69 >=60 mL/min/1. 73 m2 Comment: [...] last reviewed 2021. Blood 11/14/2024 2:09 PM TROPHY ASSEMBLER 11/14/2024 3:39 PM TROPHY ASSEMBLER Alyson Mcgarry NP LAB BLOOD ORDERABLES Final Result Performing Organization Address [facility] Co de Phone Number KIRK CARTER [facility] [place] [address] * (ABNORMAL) CBC without differential (11/14/2024 2:09 PM TROPHY ASSEMBLER) [facility] WBC 4.0 3.8 - 9.9 K/cumm Hgb 14.2 11.9 - 15.5 g/dL [facility] Hct 41.9 35.6 - 45.5 % [facility] Plt 285 150 - 400 K/cumm [facility] MPV 9.4 9.1 - 12.3 fL [facility] RBC 4.25 3.90 - 5.20 M/cumm [facility] MCV 98.6(H) 81.3 - 96.4 fL [facility] MCH 33.4(H) 27.1 - 33.3 pg [facility] MCHC 33.9 32.3 - 35.7 g/dL [facility] RDW CV 12.2 11.1 - 14.9 % [facility] RDW SD 44.1 35.7 - 48.1 fL [facility] NRBC abs 0.00 0.00 - 0.01 K/cumm [facility] Blood 11/14/2024 2:09 PM TROPHY ASSEMBLER 11/14/2024 3:40 PM TROPHY ASSEMBLER Alyson Mcgarry NP LAB BLOOD ORDERABLES Final Result Performing Organization Address City/State/[facility] Co de Phone Number [facility] Department [place] [address] * Basic metabolic panel (11/14/2024 2:09 PM TROPHY ASSEMBLER) [facility] Sodium 144 135 - 145 mmol/L Potassium, pl 3.9 3.3 - 4.9 mmol/L [facility] Chloride 107 97 - 110 mmol/L [facility] CO2 27 22 - 32 mmol/L [facility] Anion gap 10 2 - 15 mmol/L [facility] BUN 14 6 - 25 mg/dL [facility] Creatinine 0.90 0.60 - 1.10 mg/dL [facility] Glucose 102 70 - 199 mg/dL [facility] Comment: Interpretive Data Fasting glucose >/= 126 [...] mg/dL KIRK MEJIAS Blood 11/14/2024 2:09 PM TROPHY ASSEMBLER 11/14/2024 3:39 PM TROPHY ASSEMBLER Alyson Mcgarry NP LAB BLOOD ORDERABLES Final Result [facility] Department [place] [address] * FL Esophagram, Single Contrast (11/08/2024 8:24 AM TROPHY ASSEMBLER) Anatomical Region Laterality Modality Body N/A Radio Fluoroscop y 11/08/2024 9:49 AM TROPHY ASSEMBLER Narrative 11/08/2024 9:55 AM TROPHY ASSEMBLER EXAM DESCRIPTION: FL ESOPHAGRAM BARIUM SWALLOW TO STOMACH, SINGLE CONTRAST REASON FOR STUDY: hiatal hernia 11/23 - hiatal hernia surgery Gerd - 20 years Biopsy in June of esophagus - benign COMPARISON: 02/07/2019 RADIATION DOSE: Dose: 363.09 uGym2 Dose Area Product (DAP) TECHNIQUE: Under fluoroscopic guidance, patient ingested thick and thin barium . FINDINGS: The clinical services professional image is grossly unremarkable. Limited evaluation of [...] Oswaldo Glover M.D. MZ: GABINO Report ID: [id number] Reading Location: [id number] Procedure Note Oswaldo Glover MD - 11/08/2024 EXAM DESCRIPTION: FL ESOPHAGRAM BARIUM SWALLOW TO STOMACH, SINGLECONTRAST REASON FOR STUDY: hiatal hernia 11/23 - hiatal hernia surgery Gerd - 20 years Biopsy in June of esophagus - benign COMPARISON: 02/07/2019 RADIATION DOSE: Dose: 363.09 uGym2 Dose Area Product (DAP) TECHNIQUE: Under fluoroscopic guidance, patient ingested thick and thin barium . FINDINGS: The clinical services professional image is grossly unremarkable. Limited evaluation of [...] Oswaldo Glover M.D. MZ: MZ Report ID: [id number] Reading Location: [id number] Steve Deutsch MD PhD IMG FLUOROSCOPY PROCED URES Final Result * Colonoscopy (06/20/2024 9:38 AM CDT) Anatomical Region Laterality Modality Other Narrative Procedure Note Landon Monge MD - 06/20/2024 9:38 AM CDT ENDOSCOPY LAB Patient Name: Batsheva Hyatt Procedure Date: 06/20/2024 9:38 AM Date of : 1955 Admit Type: Outpatient Age: 69 Gender: Female Attending MD: Landon Mogne M.D. Room: [facility] ENDOSCOPY ROOM 04 Note Status: Finalized Procedure: [...] The scope was passed under direct vision.The [id number] was introduced through the anusand advanced to [...] my nurses in the GI office at [phone] ([phone]) for your final pathology results in7 days. - . Attending Participation: I personally performed the entire procedure. Electronically signed by Landon Monge MD Landon Monge M.D. 06/20/2024 10:09:16 AM Number of Addenda: 0 Note Initiated On: 06/20/2024 9:38 AM Landon Monge MD ENDOSCOPY PROCEDUR ES Final Result from Last 3 Months or Most Recently Relevant to Health Maintenance Insurance [facility] CHOICE PLUS L[employer]ike MEDICARE [facility] MEDICARE SUPPLEMENT MEDICARE [facility] MEDICARE SUPPLEMENT Advance Directives For more information, please contact: [phone] Documents on File Type Date Recorded Patient Farm Management Teacher Expl anation ADVANCE DIRECTIVE 06/28/2019 POWER OF [...] 11:50 AM 03/16/2019 4:46 PM Care Teams Clipper Automatic Relationship Specialty Start Date End Date María Queen MD [address] [place] [address] PCP - General Family Medicine 11/01/24
--- OUTSIDE RECORDS SUMMARY | 2024-12-19 10:09 | XMS_ITS | Referral Summary ---
Author Organization [facility] Address [address] [place] [address] Care Team Providers Care Benefits Representative Name Role Phone María Queen MD Primary Care Provider [phone] Encounters Date Type Department Care Team Description 11/21/2024 Documentation [place] [facility] ([facility]) - [facility] Minimally Invasive Surgery [address] 12th Floor, [place] [phone] Deloris Martinez Cancel (Pt has tested positive for COVID-19 and will cancel surgery for 11/23/24. Patient will call back to reschedule surgery after recovery.) 11/21/2024 Telephone [facility] ([facility]) - [facility] Minimally Invasive Surgery [address] 12th Floor, [place] [phone] Steve Deutsch MD PhD Medical Question/Miscellaneou s 11/20/2024 Telephone [facility] ([facility]) - [facility] Minimally Invasive Surgery [address] 12th Floor, [place] [phone] Steve Deutsch MD PhD Medical Question/Miscellaneou s 11/17/2024 Telephone [facility] [address] [place] [phone] Mary De La Cruz RN 11/14/2024 1:30 PM SECURITY INTELLIGENCE ANALYST Pre-Admission Testing [facility] for Preoperative Assessment and Planning [place] [facility] ([facility]) [address] [place] [address] Preoperative testing (Primary Dx) 11/08/2024 7:40 AM SECURITY INTELLIGENCE ANALYST - 11/08/2024 11:59 PM SECURITY INTELLIGENCE ANALYST Hospital Encounter [facility] [address] [place] [address] Rad, Amh Fluoro Hiatal hernia with GERD Discharge Disposition: Discharge to home or self care 10/18/2024 Telephone [facility] [address] [place] [address] Rozina Payne RN 10/13/2024 Telephone [facility]) [facility] Minimally Invasive Surgery [address] [place] [address] 12th Floor, [place] [address] Steve Deutsch MD PhD Medical Question/Miscellaneou s 10/12/2024 [facility] Minimally Invasive Surgery [address] [place] [address] 12th Floor, [place] [address] Steve Deutsch MD PhD Scheduling Appointments 10/11/2024 [facility] Minimally Invasive Surgery [address] [place] [address] 12th Floor, [place] [address] Steve Deutsch MD PhD Medical Question/Miscellaneou s; Scheduling Appointments 09/20/2024 2:40 PM SECURITY INTELLIGENCE ANALYST Office Visit [facility]) [facility] Minimally Invasive Surgery [address] [place] [address] 12th Floor, [place] [address] Steve Deutsch MD PhD Hiatal hernia with [...] (10/31/2019): Added automatically from request for surgery [id number] Hiatal hernia with GERD 03/28/2019 Overview (03/28/2019): Added automatically from request for surgery [id number] Hiatal hernia 02/10/2019 Overview (02/10/2019): Added automatically from request for surgery [id number] Colon cancer screening 02/10/2019 Overview (02/10/2019): Added automatically from request for surgery [id number] BMI 29.0-29.9,adult 11/03/2018 Overweight (BMI 25.0-29.9) 11/03/2018 Assessment & Plan (11/03/2018 5:28 PM SECURITY INTELLIGENCE ANALYST): Current weight = 165 lb. Focus on [...] 04/21/2018 Assessment & Plan (11/03/2018 5:29 PM SECURITY INTELLIGENCE ANALYST): Chronic condition, currently stable. The patient does [...] 04/21/2018 Assessment & Plan (11/03/2018 5:29 PM SECURITY INTELLIGENCE ANALYST): Chronic, stable. Depressive symptoms are well controlled [...] on file Legal Sex Female 6:40 AM SECURITY INTELLIGENCE ANALYST Gender Identity Not on file Sexual Orientation Not on file Last Filed Vital Signs Vital Sign Reading Time Taken Comments Blood Pressure 131/69 11/14/2024 1:40 PM SECURITY INTELLIGENCE ANALYST Pulse 74 11/14/2024 1:35 PM SECURITY INTELLIGENCE ANALYST Temperature 36.3 C (97.3 F) 06/20/2024 10:05 AM CDT Respiratory Rate 18 11/14/2024 1:35 PM SECURITY INTELLIGENCE ANALYST Oxygen Saturation 98% 11/14/2024 1:35 PM SECURITY INTELLIGENCE ANALYST Inhaled Oxygen Concentration - - Weight 78 kg (171 lb 15.3 oz) 11/14/2024 1:35 PM SECURITY INTELLIGENCE ANALYST Height 160 cm (5' 3 ) 11/14/2024 1:35 PM SECURITY INTELLIGENCE ANALYST Body Mass Index 30.46 11/14/2024 1:35 PM SECURITY INTELLIGENCE ANALYST Plan of Treatment Upcoming Encounters Date Type Department Care Team (Latest Contact Info) Description 01/04/2025 10:45 AM CDT Hospital Encounter [facility] Operating Room [address] [place] [address] Steve Deutsch MD PhD [address] [place] [address] 01/04/2025 10:45 AM CDT Anesthesia Event [facility] Operating Room [address] [place] [address] Alyson Mcgarry NP [address] [place] [address] 01/04/2025 10:45 AM CDT - 01/04/2025 2:25 PM CDT Surgery [facility] Operating Room [address] [place] [phone] Steve Deutsch MD PhD [address] [place] [address] XI REDO HIATAL HERNIA REPAIR Scheduled Procedures Name Priority Associated Diagnoses Date/Ti me XI REDO HIATAL HERNIA REPAIR Hiatal hernia with GERD 01/04/2025 10:45 AM CDT XI FUNDOPLICATION Hiatal hernia with GERD 01/04/2025 10:45 AM CDT ESOPHAGOGASTRODUODENOSCOPY Hiatal hernia with GERD 01/04/2025 10:45 AM CDT Procedures Procedure Name Priority Date/Time Associated Diagnosis Comments EGFR Routine 11/14/2024 2:09 PM SECURITY INTELLIGENCE ANALYST Preoperative testing BASIC METABOLIC PANEL Routine 11/14/2024 2:09 PM SECURITY INTELLIGENCE ANALYST Preoperative testing CBC WITHOUT DIFFERENTIAL Routine 11/14/2024 2:09 PM SECURITY INTELLIGENCE ANALYST Preoperative testing TYPE AND SCREEN 14 DAY Routine 11/14/2024 2:09 PM SECURITY INTELLIGENCE ANALYST Preoperative testing FL ESOPHAGRAM, SINGLE CONTRAST Schedule Routine, Read Routine (OP Routine) 11/08/2024 8:24 AM SECURITY INTELLIGENCE ANALYST Hiatal hernia with GERD COLONOSCOPY 06/20/2024 9:38 AM CDT from Last 3 Months or Most Recently Relevant to Health Maintenance Results * TYPE AND SCREEN 14 DAY (11/14/2024 2:09 PM SECURITY INTELLIGENCE ANALYST) Ilene, indirect Negative ABO Rh AB Positive [facility] Blood 11/14/2024 2:09 PM SECURITY INTELLIGENCE ANALYST 11/14/2024 3:42 PM SECURITY INTELLIGENCE ANALYST Narrative [facility] - 11/14/2024 4:50 PM SECURITY INTELLIGENCE ANALYST Has the patient had Daratumumab or Isatuximab in the past 6 months?->No Is this test being ordered in advance for a procedure?->Yes Expected date of procedure:->11/23/24 Has the patient been transfused in the past 3 months?->No Has the patient been in the past 3 months?->No Alyson Mcgarry NP LAB BLOOD BANK TEST ORDERAB LES Final Result Performing Organization Address [facility] de Phone Number [facility] [place] [address] * eGFR (11/14/2024 2:09 PM SECURITY INTELLIGENCE ANALYST) eGFR 69 >=60 mL/min/1. 73 m2 Comment: [...] last reviewed 2021. Blood 11/14/2024 2:09 PM SECURITY INTELLIGENCE ANALYST 11/14/2024 3:39 PM SECURITY INTELLIGENCE ANALYST Alyson Mcgarry NP LAB BLOOD ORDERABLES Final Result Performing Organization Address [facility] Co de Phone Number [facility] [place] [address] * (ABNORMAL) CBC without differential (11/14/2024 2:09 PM SECURITY INTELLIGENCE ANALYST) [facility] WBC 4.0 3.8 - 9.9 K/cumm Hgb 14.2 11.9 - 15.5 g/dL [facility] Hct 41.9 35.6 - 45.5 % [facility] Plt 285 150 - 400 K/cumm [facility] MPV 9.4 9.1 - 12.3 fL [facility] RBC 4.25 3.90 - 5.20 M/cumm [facility] MCV 98.6(H) 81.3 - 96.4 fL [facility] MCH 33.4(H) 27.1 - 33.3 pg [facility] MCHC 33.9 32.3 - 35.7 g/dL [facility] RDW CV 12.2 11.1 - 14.9 % [facility] RDW SD 44.1 35.7 - 48.1 fL [facility] NRBC abs 0.00 0.00 - 0.01 K/cumm [facility] Blood 11/14/2024 2:09 PM SECURITY INTELLIGENCE ANALYST 11/14/2024 3:40 PM SECURITY INTELLIGENCE ANALYST Alyson Mcgarry NP LAB BLOOD ORDERABLES Final Result [facility] [place] [address] * Basic metabolic panel (11/14/2024 2:09 PM SECURITY INTELLIGENCE ANALYST) [facility] Sodium 144 135 - 145 mmol/L Potassium, pl 3.9 3.3 - 4.9 mmol/L [facility] Chloride 107 97 - 110 mmol/L [facility] CO2 27 22 - 32 mmol/L [facility] Anion gap 10 2 - 15 mmol/L [facility] BUN 14 6 - 25 mg/dL [facility] Creatinine 0.90 0.60 - 1.10 mg/dL [facility] Glucose 102 70 - 199 mg/dL [facility] Comment: Interpretive Data Fasting glucose >/= [...] Calcium 9.2 8.5 - 10.3 mg/dL [facility] Blood 11/14/2024 2:09 PM SECURITY INTELLIGENCE ANALYST 11/14/2024 3:39 PM SECURITY INTELLIGENCE ANALYST Alyson Mcgarry NP LAB BLOOD ORDERABLES Final Result [facility] [place] [address] * FL Esophagram, Single Contrast (11/08/2024 8:24 AM SECURITY INTELLIGENCE ANALYST) Anatomical Region Laterality Modality Body N/A Radio Fluoroscop y 11/08/2024 9:49 AM SECURITY INTELLIGENCE ANALYST Narrative 11/08/2024 9:55 AM SECURITY INTELLIGENCE ANALYST EXAM DESCRIPTION: FL ESOPHAGRAM BARIUM SWALLOW TO STOMACH, SINGLE CONTRAST REASON FOR STUDY: hiatal hernia 11/23 - hiatal hernia surgery Gerd - 20 years Biopsy in June of esophagus - benign COMPARISON: 02/07/2019 RADIATION DOSE: Dose: 363.09 uGym2 Dose Area Product (DAP) TECHNIQUE: Under fluoroscopic guidance, patient ingested thick and thin barium . FINDINGS: The lens blocker image is grossly unremarkable. Limited evaluation of [...] Oswaldo Glover M.D. MZ: MZ Report ID: [id number] Reading Location: [id number] Procedure Note Oswaldo Glover MD - 11/08/2024 EXAM DESCRIPTION: FL ESOPHAGRAM BARIUM SWALLOW TO STOMACH, SINGLECONTRAST REASON FOR STUDY: hiatal hernia 11/23 - hiatal hernia surgery Gerd - 20 years Biopsy in June of esophagus - benign COMPARISON: 02/07/2019 RADIATION DOSE: Dose: 363.09 uGym2 Dose Area Product (DAP) TECHNIQUE: Under fluoroscopic guidance, patient ingested thick and thin barium . FINDINGS: The lens blocker image is grossly unremarkable. Limited evaluation of [...] Oswaldo Glover M.D. MZ: GABINO Report ID: [id number] Reading Location: [id number] Steve Deutsch MD PhD IMG FLUOROSCOPY PROCED URES Final Result * Colonoscopy (06/20/2024 9:38 AM CDT) Anatomical Region Laterality Modality Other Narrative Procedure Note Landon Monge MD - 06/20/2024 9:38 AM CDT ENDOSCOPY LAB Patient Name: Batsheva Hyatt Procedure Date: 06/20/2024 9:38 AM Date of : 1955 Admit Type: Outpatient Age: 69 Gender: Female Attending MD: Landon Monge M.D. Room: [facility] ENDOSCOPY ROOM 04 Note Status: Finalized Procedure: [...] The scope was passed under direct vision.The [id number] was introduced through the anusand advanced to [...] my nurses in the GI office at [phone] ([phone]) for your final pathology results in7 days. - . Attending Participation: I personally performed the entire procedure. Electronically signed by Landon Monge MD Landon Monge M.D. 06/20/2024 10:09:16 AM Number of Addenda: 0 Note Initiated On: 06/20/2024 9:38 AM Landon Monge MD ENDOSCOPY PROCEDUR ES Final Result from Last 3 Months or Most Recently Relevant to Health Maintenance Insurance [facility] CHOICE PLUS [employer] MEDICARE [facility] MEDICARE SUPPLEMENT MEDICARE [facility] MEDICARE SUPPLEMENT Advance Directives For more information, please contact: [phone] Documents on File Type Date Recorded Patient Body Joiner Expl anation ADVANCE DIRECTIVE 06/28/2019 POWER OF [...] 11:50 AM 03/16/2019 4:46 PM Care Teams Benefits Representative Relationship Specialty Start Date End Date María Queen MD [address] [place] [address] PCP - General Family Medicine 11/01/24
[2024-12-19 10:26] LABS: Basophils Absolute Auto 0.1 K/mm3 (0.0-0.1); Basophils Percent Auto 0.9 % (0.2-1.2); Eosinophils Absolute Auto 0.3 K/mm3 (0-0.3); Eosinophils Percent Auto 5.3 % (0-4.4); Hematocrit 42.6 % (37.0-47.0); Hemoglobin 14.4 g/dL (12.0-15.0); Immature Granulocyte Absolute 0.02 K/mm3 (0.00-0.031); Immature Granulocyte Percent A 0.4 % (0-0.5); Lymphocytes Absolute Auto 1.54 K/mm3 (0.9-3.2); Lymphocytes Percent Auto 27.3 % (18.3-44.2); Mean Corpuscular HGB Conc 33.8 g/dl (32-36); Mean Corpuscular Hemoglobin 33.5 pg (26-34); Mean Corpuscular Volume 99.1 fl (80-100); Mean Platelet Volume 9.3 fl (7.4-10.4); Monocytes Absolute Auto 0.5 K/mm3 (0.1-0.6); Monocytes Percent Auto 8.7 % (2.6-8.5); Neutrophils Absolute Auto 3.2 K/mm3 (1.3-6.7); Neutrophils Percent Auto 57.4 % (45.5-73.1); Platelet Count Result 279 k/mm3 (150-375); Red Cell Distribution Width 12.5 % (11.5-14.5); White Blood Count 5.6 K/mm3 (4.5-10.0)
[2024-12-19 10:27] VITALS: RESP 16
[2024-12-19 10:41] LABS: Alanine Aminotransferase 55 U/L (6-35); Albumin Level 4.2 g/dL (3.5-5.1); Alkaline Phosphatase 104 U/L (38-126); Anion Gap 8 mmol/L (4-12); Aspartate Amino Transferase 45 U/L (14-36); Bilirubin,Total 0.8 mg/dL (0.2-1.3); Blood Urea Nitrogen 16 mg/dL (7-17); CRP < 0.5 mg/dL (<1.0); Calcium 9.1 mg/dL (8.4-10.2); Carbon Dioxide 22 mmol/L (22-30); Chloride 109 mmol/L (98-107); Estimated CRCL calculation 58 ml/min; Estimated Glomerular Filt Rate > 60; Glucose 114 mg/dL (65-110); Potassium 4.8 mmol/L (3.4-5.0); Sodium 139 mmol/L (137-145)
[2024-12-19] MEDS: KETOROLAC 30 MG/ML VIAL (*BKC) IV PUSH (11:23)
[2024-12-19] MEDS: ceFAZolin 1 GM/NS 50 ML 1 GM/50 ML BAG IVPB (11:24)
[2024-12-19] MEDS: dexAMETHasone SOD PHOS INJ 10 MG/ML 1 ML VIAL 6 MG IV PUSH (11:25)
[2024-12-19 12:00] VITALS: BP 160/67; PULSE 61; RESP 16; O2SAT 96
== END 2024-12-19 12:14 | disposition home or self-care (01) ==
PROVIDERS: Emergency Provider Physician Assistant; PCP Family Medicine
DX: J32.9 Chronic sinusitis, unspecified (principal); R51.9 Headache, unspecified; K21.9 Gastro-esophageal reflux disease without esophagitis; F32.A Depression, unspecified; E78.5 Hyperlipidemia, unspecified
CPT/HCPCS: 36415; 70491; 80053; 85025; 86140; 96365; 96375; 99284; J0690; J1100; J1885; J2270; J2405; Q9967

== ENCOUNTER 2025-02-06 13:19 | Outpatient (CLI) | payer MEDICARE, SELFPAY ==
--- NOTE | ~2025-02-06 | MM_ITS ---
EXAMINATION: MM screening nadeem BI w jose luis HISTORY: Screening TECHNIQUE: Craniocaudal and mediolateral oblique 3-D tomosynthesis images were obtained and synthetic 2-D images were generated. CAD analysis was submitted and interpreted. COMPARISON: Comparison to multiple prior studies sequentially, with oldest reviewed study dated 05/23. BREAST PARENCHYMAL COMPOSITION: Dense: The breasts are heterogeneously dense, which may obscure small masses FINDINGS: There is no evidence of suspicious mass, calcification, or architectural distortion to sugg est malignancy in either breast. There has been no suspicious interval change. IMPRESSION: 1. No mammographic evidence of malignancy. 2. Recommend routine screening mammography in one year. BI-RADS Category 1: Negative Reviewed, dictated and finalized at location A.
== END 2025-02-06 13:20 | disposition home or self-care (01) ==
LOC: MICIMG 13:20
PROVIDERS: PCP Family Medicine; Visit Provider Surgery
DX: Z12.31 Encounter for screening mammogram for malignant neoplasm of breast (principal)
CPT/HCPCS: 77063; 77067

== ENCOUNTER 2025-02-13 09:42 | Outpatient (CLI) | payer MEDICARE, SELFPAY ==
--- NOTE | ~2025-02-13 | XR_ITS ---
Left Shoulder Technique: AP and scapular Y views were obtained. Clinical History: Pain Findings: No fracture or dislocation is seen. Osseous alignment is anatomic. The glenohumeral and acr omioclavicular joint spaces are preserved. Soft tissues are unremarkable. Impression: Unremarkable left shoulder radiographs. Reviewed, dictated and finalized at [facility]. Impression: Unremarkable left shoulder radiographs.
== END 2025-02-13 09:43 | disposition home or self-care (01) ==
LOC: GOSHIMG 09:43
PROVIDERS: PCP Orthopaedic Surgery; Visit Provider Orthopaedic Surgery
DX: M25.512 Pain in left shoulder (principal)
CPT/HCPCS: 73030

== ENCOUNTER 2025-03-30 00:35 | Day surgery (SDC) | payer MEDICARE, SELFPAY ==
[2025-03-21 15:41] VITALS: BMI 27.3
--- NOTE | 2025-03-21 15:50 | PC.NURSE ---
Report to the Outpatient Waiting Room, entrance under the green pavilion located off [facility], at time __06:00am on date _03/30/25 . Planned Procedure Time: _07:30am .? Time changes happen often and if your time is changed the preop area will call you the afternoon before. - You and your visitor will be asked to self-screen and do not enter if you have any COVID symptoms. Please call surgeon if you need to reschedule. - A mask is optional within the hospital at this time. Patients may have clear liquids (water, carbonated beverages, clear teas, apple juice) until 3 hours prior to surgery with a maximum of 20 ounces. - No food from midnight until time of surgery and no smoking, or chewing tobacco (or any form of nicotine). No chewing gum, candy or mints. (04:30am) Take only the following medications with a SIP of water on the morning of surgery: Alprazolam, Tylenol if needed DO NOT STOP ANY OF YOUR OTHER PRESCRIPTION MEDICATIONS PRIOR TO SURGERY EXCEPT THE FOLLOWING Hold all vitamins and supplements for 3 days per anesthesiologist.Date to take last dose 03/26/25. NO Meloxicam/NSAIDS or ASA cont products for 7 days prior- date of last dose is 03/21/25. Medications to discontinue per physician Zepbound for 10 days prior per Anesthesia Date to take last dose___03/19/25 Please no make-up, nail tanzanian, hairspray, perfume, deodorant, or body powder the day of surgery.? No jewelry (including any body piercings) or valuables the day of surgery, leave them at home.? Please take a shower or bath the night before, or the morning of, surgery with an antibacterial soap.? Wear comfortable, loose fitting clothing.? - Jewelry must be removed prior to entering the operating room.? Rings and piercings that are not removed may be cut off. - The hospital will not accept responsibility for valuables.? - Please leave all valuables, including medications, at home the day of surgery. If you are going home after surgery, a licensed clamp truck driver must drive you home.? - NO public transportation without another adult if you receive anesthesia. - We recommend that an adult stay with you for 24 hours following discharge. - We also recommend that you do not drive, make important decision, drink alcoholic beverages, or take any drugs that were not prescribed by your health care provider for at least 24 hours after your discharge time. Follow any additional instructions given to you from your surgeon. Telephone instructions given to ___Patient and asked if any additional questions and then verbalized understanding. Patient advised to call surgeon office or pre surgery nurse liaison [phone] if any additional questions.
--- NOTE | 2025-03-29 15:18 | WPDANESEPPF ---
Anes - Initial Pre Proc Eval Procedure: Operation Date: 03/30/25 07:30 Proposed Procedures p Urethral Sling - Hernando Garcia MD Date/Time: 03/29/25 15:18 Surgeon: Hernando Garcia MD Pre Op Diagnosis: stress incontinence Patient Data Age: 69 Gender: F Height: 1.6 m Weight: 70 kg Allergies Allergy/AdvReac Type Severity Reaction Status Date / Time Sulfa (Sulfonamide Allergy Unknown Unknown Verified 03/21/25 15:37 Antibiotics) Home Medications ?Medication ?Instructions ?Recorded ?Confirmed ?Type meloxicam 15 mg tablet See Rx Instructions .Route 12/06/23 03/21/25 History .COMPLEX PRN pain alprazolam 0.25 mg tablet (Xanax) 0.25 mg PO TID PRN anxiety #90 tabs 02/27/25 03/21/25 Rx duloxetine 30 mg capsule,delayed 30 mg PO HS 03/21/25 03/21/25 History release Patient hx anesthesia problems: none Family hx anesthesia problems: none Results Review: All pre-operative results and documents have been reviewed as part of the pre-operative evaluation. 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 Mixed hyperlipidemia Surgical History Surgical History H/O: hysterectomy History of cholecystectomy History of Hector fundoplication initial surgery in 2018, redo in 01/2025 Family History Family History Father Family history of Alzheimer's disease Family history of dementia Family history of coronary artery disease Family history of malignant neoplasm of kidney Mother Family history of dementia Grandparent Family history of malignant neoplasm of gastrointestinal tract Other Cerebrovascular accident Family history of cardiovascular disease Social History Social History Social History: Caffeine- coffee Smoking status: Never smoker Alcohol intake: current Drinks per week: 3 Substance use: never Substance use type: does not use Lack of Transportation: No Lack of Food: Never True Current Housing: I Have Housing Concerned About Future Housing: No Difficulty Paying Gas/Electric Bills: No Difficulty Paying for Meds: No Currently Unemployed: No Education: Master's Degree or Higher Difficulty w/ Childcare or Family Care: No Living arrangements: with family Occupation/Education: retired Gender identity (if verbalized by the patient): Female Anes - Eval Final PreProcedure Day of Procedure 03/29/25 15:18 Patient weight: overweight Heart: regular rate and rhythm Lungs: clear to auscultation Airway: Mallampati scale class II Neurological: alert and oriented Last oral intake: >/= 8 hours ASA classification: II Emergent: no Anesthetic plan: proceed Anesthesia type and monitoring: general GIVS and standard monitoring Results Review: All pre-operative results and documents have been reviewed as part of the pre-operative evaluation. Informed Consent: The patient's anesthetic plan and its attendant risks and benefits were discussed with the patient/family/POA. Questions were solicited and answers provided to the satisfaction of the patient/family/POA.
[2025-03-30] VITALS (7 sets, daily range): BP systolic 106–129; BP diastolic 53–88; PULSE 58–68; RESP 16–20; TEMP 36.2; O2SAT 97–99
--- NOTE | 2025-03-30 04:38 | PM.IMHP ---
H&P: HPI History of Present Illness Date/Time: 03/30/25 04:38 Chief Complaint: DUTCH Narrative: DUTCH confirmed on urodynamics. Desires surgical correction Review of Systems Review of Systems: All systems reviewed & are unremarkable except as noted in HPI and below PMFSH Past Medical History Medical History COVID (~11/19/24) Left lateral epicondylitis BMI 26.0-26.9,adult Sims's esophagus with dysplasia FH: dementia Gastroesophageal reflux disease Major depressive disorder in partial remission Mixed hyperlipidemia Surgical History Surgical History H/O: hysterectomy History of cholecystectomy History of Hector fundoplication initial surgery in 2018, redo in 01/2025 Family History Family History Father Family history of Alzheimer's disease Family history of dementia Family history of coronary artery disease Family history of malignant neoplasm of kidney Mother Family history of dementia Grandparent Family history of malignant neoplasm of gastrointestinal tract Other Cerebrovascular accident Family history of cardiovascular disease Social History Social History Social History: Caffeine- coffee Smoking status: Never smoker Alcohol intake: current Drinks per week: 3 Substance use: never Substance use type: does not use Lack of Transportation: No Lack of Food: Never True Current Housing: I Have Housing Concerned About Future Housing: No Difficulty Paying Gas/Electric Bills: No Difficulty Paying for Meds: No Currently Unemployed: No Education: Master's Degree or Higher Difficulty w/ Childcare or Family Care: No Living arrangements: with family Occupation/Education: retired Gender identity (if verbalized by the patient): Female Meds Home Medications and Allergies Home Medications ?Medication ?Instructions ?Recorded ?Confirmed ?Type meloxicam 15 mg tablet See Rx Instructions .Route 12/06/23 03/21/25 History .COMPLEX PRN pain alprazolam 0.25 mg tablet (Xanax) 0.25 mg PO TID PRN anxiety #90 tabs 02/27/25 03/21/25 Rx duloxetine 30 mg capsule,delayed 30 mg PO HS 03/21/25 03/21/25 History release Allergies Allergy/AdvReac Type Severity Reaction Status Date / Time Sulfa (Sulfonamide Allergy Unknown Unknown Verified 03/21/25 15:37 Antibiotics) Exam Narrative: + urethral mobility Assessment and Plan Assessment and plan (1) DUTCH (stress urinary incontinence, female): Code(s): N39.3 - Stress incontinence (female) (male) Status: Acute Assessment and Plan: plan for urethral sling. Risks, benefits and alternatives outlined in office chart
--- NOTE | 2025-03-30 04:41 | WPDHPUPDATE1 ---
History and Physical Update Update Date/Time: 03/30/25 04:41 History and Physical has been reviewed, including an updated exam of the patient. There are NO changes in the patient's condition. Risks, benefits, and alternatives have been discussed and questions answered. Patient agrees to proceed with procedure.
[2025-03-30] MEDS: LACTATED RINGERS 1,000 ML 30 ML IV CONT (06:30)
[2025-03-30] MEDS: ceFAZolin 2 GM/D5W 50 ML 2 GM/50 ML BAG IVPB (07:27)
[2025-03-30] MEDS: BUPIVACAINE/EPINEPHRINE 0.5% 30 ML VIAL 10 ML INFILTRATE (07:39)
[2025-03-30] MEDS: KETOROLAC 15 MG/ML VIAL (*BKC) IV PUSH (07:51)
--- NOTE | 2025-03-30 08:07 | W.PM.PROC2 ---
Procedure Note - Detailed Date of Procedure 03/30/25 Pre-op Diagnosis stress incontinence Post-op Diagnosis Same Procedure Performed mid urethral sling cystoscopy Surgeon Hernando Garcia MD Anesthesia MAC and Local Indications This is a female with confirm stress urinary incontinence. She desires surgical correction. She understands the risks of bleeding, infection, injury to the urinary tract, vaginal mesh extrusion, urinary tract mesh erosion, obstructive voiding requiring a secondary procedure, hip and leg pain, dyspareunia, inability to improve overactive bladder symptoms. She agrees to proceed. Description of Procedure She was correctly identified. Informed consent obtained. She was brought the operating room. She was given appropriate anesthesia. Will perform this case with sedation and local anesthesia. She was given appropriate perioperative antibiotics. A time-out performed. I marked out the site of the inner thigh incisions. I anesthetized the skin and made those incisions. I anesthetized the anterior vaginal wall over the mid urethra. Of note there was scarring from previous cystocele repair and significant atrophic changes. I made a 1 cm incision. I dissected out laterally taking great care not to injure the urethra or the vaginal wall. The dissection was somewhat more difficult due to scarring from previous cystocele repair. I took great care not to buttonhole the vaginal wall or injure the bladder or urethra. I passed the helical trocars. First on the left. Then on the right. I did this from the thigh incision towards the vaginal incision. The sling was connected to the trocars and brought out through the thigh incision. I tensioned the sling appropriately. I cut and the plastic sheaths. I then closed the incision with 2 0 Vicryl. I palpated the sulcus bilaterally as well as the midline. There was no evidence of mesh exposure. On cystoscopy there is no tumors or surgical artifact. There was no surgical artifact in the urethra. I cut the excess sling material. Close incisions with glue. She was awakened and transferred to the PACU in stable condition. Implants Urethral sling Estimated Blood Loss 20 Drains No Packing No Pathology None sent Complications No immediate complications Condition Stable Disposition PACU
== END 2025-03-30 10:25 | disposition home or self-care (01) ==
PROVIDERS: PCP Family Medicine; Visit Provider Urology
PROC: (CPT 57288; principal; 2025-03-30 07:30)
DX: N39.3 Stress incontinence (female) (male) (principal); E78.2 Mixed hyperlipidemia; K21.9 Gastro-esophageal reflux disease without esophagitis; F32.4 Major depressive disorder, single episode, in partial remission; Z98.890 Other specified postprocedural states; Z90.49 Acquired absence of other specified parts of digestive tract; Z87.19 Personal history of other diseases of the digestive system; Z80.51 Family history of malignant neoplasm of kidney; Z80.0 Family history of malignant neoplasm of digestive organs; Z82.49 Family history of ischemic heart disease and other diseases of the circulatory system
CPT/HCPCS: 57288; C1771; J0690; J1885; J2003; J2405; J2704; J3010; J7120

== ENCOUNTER 2025-05-03 12:30 | Outpatient (RCR) | payer MEDICARE, SELFPAY ==
--- NOTE | 2025-03-26 13:25 | OPREHPOC ---
Outpatient Therapy Plan of Care This is a Multidisciplinary Plan of Care that may contain components documented by all disciplines (PT, OT, and ST.) PT Problem 1 PT Problem #1 Knowledge Deficit PT Goal 1 Goal / Goal Update 1* independent with HEP 2* pt demonstrate correct shoulder position with exercises Target Visit 8 PT Problem 2 PT Problem #2 Impaired Flexibility PT Goal 1 Goal / Goal Update L shoulder active ROM in standing 1* flexion 150' 2* abduction 150' 3* IR- reach behind back, fingers to distal scapula Target Visit 8 PT Problem 3 PT Problem #3 Impaired Strength PT Goal 1 Goal / Goal Update gross strength of L shoulder and scapula 4+/5 Target Visit 8
--- NOTE | 2025-03-26 13:25 | PTOPEVAL1 ---
Assessment and note entered by Jesusita Alegria, PT Evaluation Information Assessment Status Evaluation ICD-10 Condition Codes (PT) Pain in left shoulder M25.512 Onset January 2025 Subjective Information gradual increase in shoulder pain; have a history of shoulder pain ~ 4-5 years ago, but this time shoulder is popping; R hand dominant; retired; active and have been doing UE strengthening with grievance and appeals specialist- is not increasing her shoulder pain; have avoided golfing due to shoulder pain. xray of shoulder is negative Reported Pain Level Pain Score Self Report Additional Pain Score Comments pain range in the past week 1-310; achey and dull , burn over lateral deltoid and lateral L neck; increase pain: lie on L side, holding book, lifting grand children, reach up into cabinet decrease pain: rest, rub shoulder, with sleeping, awaken 1x/night due to shoulder pain have meloxicam, taking for toe arthritis; is not using heat or ice, instruct on PRN use 10- 15 minutes Assessment PT Clinical Summary Batsheva has the diagnosis of L shoulder pain. She reports gradual increase in pain, without injury to L arm or neck. About 4-5 years ago, she had L shoulder pain that resolved with PT treatments. Self assessment with Quick DASH rating of 30% limitation in activity level. She is R hand dominant, retired and active lifestyle. Xray of shoulder is negative. With the evaluation: she has rounded shoulders and forward head posture; decreased strength and active motion of L shoulder. Skilled PT services are indicated for treatment of L shoulder impingement: modalities, therapeutic exercises to increase strength and flexibility, with education for HEP, posture and body mechanics . Plan of Care Interventions Electrical Stimulation,Hot Pack/Cold Pack,Manual Therapy,Neuro Re-education,Patient/Caregiver Education,Therapeutic Activities,Therapeutic Exercise,Ultrasound,Other Other Interventions taping PT Services Indicated Yes Treatment Frequency and 1-2x/wk for 8 visits Duration These treatments will address the objective and functional deficits as defined above. The patient will be advanced safely and appropriately in order for the patient to progress towards his/her prior level of function. Additional exercises will be introduced and as well as a comprehensive home exercise program upon discharge, if needed, ?to ensure carryover of functional gains achieved in the clinic. This treatment plan has been reviewed and agreement upon by the patient.
--- NOTE | 2025-04-30 12:42 | PCPTNOTE ---
Patient was a No Show/No Call for today's treatment visit.
--- NOTE | 2025-07-03 07:58 | PTOPDC ---
Assessment and note entered by Delbert Myers, PT Evaluation Information Assessment Status Discharge - Pt Not Present ICD-10 Condition Codes (PT) Pain in left shoulder M25.512 Onset January 2025 Subjective Information gradual increase in shoulder pain; have a history of shoulder pain ~ 4-5 years ago, but this time shoulder is popping; R hand dominant; retired; active and have been doing UE strengthening with hop strainer- is not increasing her shoulder pain; have avoided golfing due to shoulder pain. xray of shoulder is negative Assessment PT Clinical Summary Patient last present for therapy on 05/03/25. Patient has not returned. Account discharged due to lack of patient presence. Plan of Care PT Services Indicated Yes
== END 2025-06-24 23:59 | disposition home or self-care (01) ==
LOC: ANHGOSHPT 12:30
PROVIDERS: PCP Family Medicine; Visit Provider Physician Assistant Surgical
DX: M75.42 Impingement syndrome of left shoulder (principal)
CPT/HCPCS: 97110; 97112; 97140; 97161; 97530